=== PATIENT | female | born 1945 | race African-American/Black ===

== ENCOUNTER 2016-08-31 09:53 | Observation (INO) ==
--- NOTE | 2016-08-31 10:14 | Emergency Department Note ---
Disposition Clinical Impression: UTI (urinary tract infection) Syncope Qualifiers: Syncope type: unspecified Qualified Code(s): R55 - Syncope and collapse Disposition: Admitted As Inpatient Condition: Fair Referrals: NO,PCP [Primary Care Provider] - Forms: ED Satisfaction Letter Time of Disposition: 11:07 Syncope HPI - General Chief Complaint: ED Syncope Stated Complaint: syncopal Time Seen by Provider: 08/31/16 10:01 Source: EMS Mode of arrival: EMS Limitations: no limitations Nursing Notes Reviewed: Yes Vital Signs Reviewed: Yes - History of Present Illness HPI Narrative: Alert and oriented 71-year-old female is brought to the emergency department via EMS from an outside [facility] for evaluation after sustaining a syncopal episode. The patient states she was sitting at the breakfast table eating her breakfast this morning, when she began to experience a sudden onset of left- sided abdominal pain. Per EMS report, shortly after the patient began to complain of her abdominal pain, she had a witnessed syncopal episode. She was taken back to her room and lied down on the bed, however she still states she was experiencing left-sided abdominal pain, headache, and nausea. She is also complaining of right-sided chest pain, shortness of breath, and a cough that is productive of green sputum. She also complains of subjective fevers that began this morning. She denies any dysuria, vomiting, diarrhea. Per EMS report, the patient was described as being in a semi-post ictal state for a short duration after the syncopal episode. Upon review of the patient's records brought to us by EMS, the patient does not have a known history of seizure disorders. 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 Constitutional: Reports: as per HPI, fever, chills. Denies: weakness, weight change Eyes: Denies: eye pain, eye discharge, vision change ENT ED: Denies: ear pain, throat pain, dental pain, hearing loss, epistaxis, congestion, dysphagia Cardiovascular: Reports: as per HPI, chest pain. Denies: palpitations, dyspnea on exertion, edema, syncope Respiratory: Reports: as per HPI, cough, dyspnea, sputum production (Green). Denies: wheezes, hemoptysis, stridor Gastrointestinal: Reports: as per HPI, abdominal pain, nausea. Denies: vomiting , diarrhea, constipation, hematemesis, melena, hematochezia Genitourinary: Denies: dysuria, frequency, hematuria, discharge Musculoskeletal: Denies: back pain, neck pain, arthralgia, myalgia Integumentary: Denies: rash, abrasion, lesions Neurological: Reports: as per HPI, headache. Denies: weakness, numbness, paresthesias, confusion, abnormal gait, vertigo Psychiatric: Denies: anxiety, depression, suicidal thoughts, homicidal thoughts , auditory hallucinations, visual hallucinations Endocrine: Denies: fatigue Hematological/Lymphatic: Denies: easy bleeding, easy bruising Allergic/Immunologic: Denies: facial swelling, urticaria Past Medical History - Past Medical History Attestation: Yes The following information was validated with the patient. 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 Absent: nystagmus - Expanded Eye Exam Pupils: Bilateral: regular, round, reactive, size (1) Sclera/Conjunctival: bilateral: normal inspection - ENT ENT exam: mucous membranes moist - Neck Neck exam: Present: normal inspection, full ROM, trachea midline - Chest Chest inspection: Present: normal inspection, symmetric chest wall rise - Respiratory Respiratory exam: Present: normal lung sounds bilaterally. Absent: respiratory distress, wheezes, accessory muscle use, prolonged expiratory phase - Cardiovascular Cardiovascular exam: Present: regular rate, normal rhythm, normal heart sounds - Abdominal Exam Abdominal exam: Present: soft, tenderness, normal bowel sounds. Absent: distention, guarding, rebound, rigidity, organomegaly, trauma, mass Abdominal tenderness: Present: diffuse, moderate - Extremities Exam Extremities exam: Present: normal inspection, full ROM. Absent: tenderness, pedal edema - Neurological Exam Neurological exam: Present: alert, oriented X3 - Expanded Neurological Exam Patient oriented to: Present: person, place, time Speech: Present: fluid speech Cranial nerves: EOM function (II, III, IV, ): Normal, facial sensation (V): Normal, facial palsy (VII): Normal, spinal accessory function (XI): Normal, tongue deviation (XII): Normal Cerebellar function: finger to nose: Normal Motor strength - LUE: 5/5 Motor strength - RUE: 5/5 Motor strength - LLE: 5/5 Motor strength - RLE: 5/5 Upper motor neuron exam: pronator drift: Absent bilaterally, sensory extinction : Absent bilaterally Sensory exam upper extremity: light touch: Normal Sensory exam lower extremity: light touch: Normal Coma Scale Eye Opening: Spontaneous Coma Scale Motor Response: Obeys Commands Coma Scale Verbal Response: Oriented Coma Scale Total: 15 - Psychiatric Psychiatric exam: Present: normal affect, normal mood - Skin Skin exam: Present: warm, dry, intact, normal color Course - Reevaluation(s) Reevaluation #1: Trey hospitalist Time: 13:10 - Consultations Consultation #1: Dr Luna accepts Time: 13:14 Vital Signs Temperature 97.8 F 08/31/16 09:56 Pulse Rate 70 08/31/16 09:56 Respiratory Rate 18 08/31/16 09:56 Blood Pressure 176/81 08/31/16 09:56 O2 Sat by Pulse Oximetry 100 08/31/16 09:56 Temperature 97.8 F 08/31/16 09:56 Pulse Rate 75 08/31/16 10:30 Respiratory Rate 16 08/31/16 10:30 Blood Pressure 144/78 08/31/16 10:30 O2 Sat by Pulse Oximetry 97 08/31/16 10:30 Oxygen Delivery Oxygen Delivery Room Air Syncope - MDM Narrative Medical decision making narrative: The patient awake and alert asking to eat. No family present at this time. Patient states she has a history of coronary disease with stents however this is not on her history from the care home. She is also states she is diabetic however she is not on any diabetes medications and it is not on the problem list from care home. Patient will be admitted. Rocephin started for UTI. No fever no white count. Patient not felt to be septic. - Medical Records Medical records reviewed: Yes I reviewed the patient's medical records. - Lab Data Lab results reviewed: Yes I reviewed the patient's lab results. Result diagrams: 08/31/16 11:11 08/31/16 11:11 Lab Results 08/31/16 08/31/16 08/31/16 Range/Units 11:11 11:11 11:11 WBC 6.3 (4.3-11.1) K/mcL RBC 4.63 (3.82-4.97) M/mcL Hgb 13.0 (11.5-15.4) g/dL Hct 40.7 (35.3-44.9) % MCV 87.9 (83.0-100.0) fL MCH 28.1 (28.0-33.3) pg MCHC 31.9 (31.6-35.5) g/dL RDW 14.7 H (11.5-14.5) % Plt Count 185 (140-400) K/mcL MPV 10.5 (9.4-12.4) fL Immature Gran % 0.3 (0-4) % Seg Neutrophils % 73.1 % Lymphocytes % 14.7 % Monocytes % 10.4 % Eosinophils % 1.0 % Basophils % 0.5 % Neutrophils # 4.6 (1.6-8.9) K/mcL Lymphocytes # 0.9 (0.6-4.6) K/mcL Monocytes # 0.7 (0.0-1.3) K/mcL Eosinophils # 0.1 (0.0-0.6) K/mcL Basophils # 0.0 (0.0-0.2) K/mcL PT 11.6 (9.4-12.1) Seconds INR 1.1 APTT 27.5 (26.0-36.0) Seconds Sodium 140 (136-145) mEq/L Potassium 4.6 H (3.5-4.5) mEq/L Chloride 107 (98-109) mEq/L Carbon Dioxide 26 (19-29) mEq/L BUN 14 (7-20) mg/dL Creatinine 0.78 (0.57-1.11) mg/dL Est GFR ( Amer) > 60 (> 60) Est GFR (Non-Af Amer) > 60 (> 60) BUN/Creatinine Ratio 18 (6-26) Glucose 98 (70-99) mg/dL Calculated Osmolality 290 (280-300) Calcium 9.3 (8.6-10.8) mg/dL Total Bilirubin 0.4 (0.2-1.2) mg/dL Direct Bilirubin 0.1 (0.0-0.5) mg/dL Indirect Bilirubin 0.3 (0.0-1.2) mg/dL AST 14 (5-34) Units/L ALT 10 (0-55) Units/L Alkaline Phosphatase 60 (38-126) Units/L Troponin I (0-0.03) ng/mL Serum Total Protein 7.0 (6.0-8.3) g/dL Albumin 3.5 (3.5-5.0) g/dL Globulin 3.5 (2.4-3.5) g/dL Albumin/Globulin Ratio 1.0 L (1.1-2.2) Amylase 124 (25-125) Units/L Lipase 39 (8-78) Units/L Urine Color (Yellow) Urine Clarity (Clear) Urine pH (5.0-8.0) pH Units Ur Specific [place] (1.010-1.025) Urine Protein (Neg-Trace) mg/dL Urine Glucose (UA) (Normal) mg/dL Urine Ketones (Negative) mg/dL Urine Blood (Negative) Urine Nitrite (Negative) Urine Bilirubin (Negative) Urine Urobilinogen (Normal) mg/dL Ur Leukocyte Esterase (Negative) Urine Microscopic RBC (0-3) per hpf Urine Microscopic WBC (0-3) per hpf Ur Squamous Epith Cells (None-Few) per lpf Urine Bacteria (None-Few) per hpf Hyaline Casts (None-Few) per lpf 08/31/16 08/31/16 Range/Units 11:11 11:40 WBC (4.3-11.1) K/mcL RBC (3.82-4.97) M/mcL Hgb (11.5-15.4) g/dL Hct (35.3-44.9) % MCV (83.0-100.0) fL MCH (28.0-33.3) pg MCHC (31.6-35.5) g/dL RDW (11.5-14.5) % Plt Count (140-400) K/mcL MPV (9.4-12.4) fL Immature Gran % (0-4) % Seg Neutrophils % % Lymphocytes % % Monocytes % % Eosinophils % % Basophils % % Neutrophils # (1.6-8.9) K/mcL Lymphocytes # (0.6-4.6) K/mcL Monocytes # (0.0-1.3) K/mcL Eosinophils # (0.0-0.6) K/mcL Basophils # (0.0-0.2) K/mcL PT (9.4-12.1) Seconds INR APTT (26.0-36.0) Seconds Sodium (136-145) mEq/L Potassium (3.5-4.5) mEq/L Chloride (98-109) mEq/L Carbon Dioxide (19-29) mEq/L BUN (7-20) mg/dL Creatinine (0.57-1.11) mg/dL Est GFR ( Amer) (> 60) Est GFR (Non-Af Amer) (> 60) BUN/Creatinine Ratio (6-26) Glucose (70-99) mg/dL Calculated Osmolality (280-300) Calcium (8.6-10.8) mg/dL Total Bilirubin (0.2-1.2) mg/dL Direct Bilirubin (0.0-0.5) mg/dL Indirect Bilirubin (0.0-1.2) mg/dL AST (5-34) Units/L ALT (0-55) Units/L Alkaline Phosphatase (38-126) Units/L Troponin I 0.00 (0-0.03) ng/mL Serum Total Protein (6.0-8.3) g/dL Albumin (3.5-5.0) g/dL Globulin (2.4-3.5) g/dL Albumin/Globulin Ratio (1.1-2.2) Amylase (25-125) Units/L Lipase (8-78) Units/L Urine Color Yellow (Yellow) Urine Clarity Cloudy A (Clear) Urine pH 7.5 (5.0-8.0) pH Units Ur Specific [place] 1.015 (1.010-1.025) Urine Protein Negative (Neg-Trace) mg/dL Urine Glucose (UA) Normal (Normal) mg/dL Urine Ketones Negative (Negative) mg/dL Urine Blood Negative (Negative) Urine Nitrite Positive A (Negative) Urine Bilirubin Negative (Negative) Urine Urobilinogen Normal (Normal) mg/dL Ur Leukocyte Esterase Large H (Negative) Urine Microscopic RBC 5-15 H (0-3) per hpf Urine Microscopic WBC 50-100 H (0-3) per hpf Ur Squamous Epith Cells Moderate H (None-Few) per lpf Urine Bacteria Many H (None-Few) per hpf Hyaline Casts None Seen (None-Few) per lpf - Radiology Data Radiology results reviewed: Yes I reviewed the patient's radiology results. Chest X-Ray 08/31/16 10:02 IMPRESSION: No evidence of acute cardiopulmonary disease. D/ / Chapo Bragg MD / Chapo Bragg MD Interpreting Provider: Chapo Bragg MD Head CT 08/31/16 10:02 IMPRESSION: No acute intracranial abnormality. D/ / Chapo Ng MD / Chapo Ng MD Interpreting Provider: Chapo Ng MD Abdomen/Pelvis CT 08/31/16 11:24 IMPRESSION: No definite acute abnormality of the abdomen or pelvis. Age-indeterminate fracture L2 vertebral body favored to be remote. Please correlate to site of pain. D/ / 08/31/2016 12:54:49 Clif Sotomayor MD / aria Interpreting Provider: Clif Sotomayor MD - EKG Data EKG attestation: Yes I reviewed and interpreted this EKG. EKG results narrative: EKG reviewed by Dr. Lozano as well. EKG shows a sinus rhythm with sinus arrhythmia. No ectopy noted. No STEMI. S.B.A.R. - S.B.A.R. Situation: Demographics, MOA Background: Presenting Complaint, Relevant PMH, Meds, & Allergies Assessment: Vital Signs, Course and respsone to treatment, Exam Concerns, Patient/Family Expectation, Pertinant Lab Results, Outstanding Labs Recommendation: Barrier(s) to disposition, Recommendation based on pending studies, treatments, or consults Thor Report Given to: Dr. Chandra Mcrae Repor Time: 11:07 Attestation Statement - Attestation Attestation: I examined this patient and my medical decision-making was reviewed with the S IRON WORKER/PA/Advanced Practice Nurse/Resident Physician. I agree with the documented findings, disposition and treatment plan as described except to the extent set forth below. Patient to the emergency department after a possible syncopal episode. Per care home report the patient was sitting at the table and went unresponsive. She did not fall or hit her head. The last thing the patient remembers is waking up and vomiting some "nasty eggs". Patient states that they laid her in the bed and the squad came to get her. Son present at bedside and has no further information to add. Patient's opening is some left-sided abdominal pain at this time. Exam shows left-sided tenderness. Awake alert and mentating at baseline per son. Plan. CT head and abdomen. Basic labs. EKG is unremarkable. Likely admit.
[2016-08-31 11:26] LABS: Basophils % 0.5 %; Eosinophils # 0.1 K/mcL (0.0-0.6); Hematocrit 40.7 % (35.3-44.9); Immature Granulocytes % 0.3 % (0-4); Lymphocytes # 0.9 K/mcL (0.6-4.6); Lymphocytes % 14.7 %; Mean Corpuscular HGB Conc 31.9 g/dL (31.6-35.5); Mean Corpuscular Hemoglobin 28.1 pg (28.0-33.3); Mean Corpuscular Volume 87.9 fL (83.0-100.0); Mean Platelet Volume 10.5 fL (9.4-12.4); Monocytes # 0.7 K/mcL (0.0-1.3); Monocytes % 10.4 %; Neutrophils # 4.6 K/mcL (1.6-8.9); Platelet Count 185 K/mcL (140-400); Red Blood Count 4.63 M/mcL (3.82-4.97); Red Cell Distribution Width 14.7 % (11.5-14.5); Segmented Neutrophils % 73.1 %
[2016-08-31 11:35] LABS: INR 1.1; Prothrombin Time 11.6 Seconds (9.4-12.1)
[2016-08-31 11:38] LABS: Activated Partial Thrombo Time 27.5 Seconds (26.0-36.0)
[2016-08-31 11:42] LABS: BUN/Creatinine Ratio 18 (6-26); Bilirubin,Direct 0.1 mg/dL (0.0-0.5); Bilirubin,Indirect 0.3 mg/dL (0.0-1.2); Bilirubin,Total 0.4 mg/dL (0.2-1.2); Blood Urea Nitrogen 14 mg/dL (7-20); Calcium 9.3 mg/dL (8.6-10.8); Carbon Dioxide 26 mEq/L (19-29); Chloride 107 mEq/L (98-109); Glucose 98 mg/dL (70-99); Osmolality,Calculated 290 (280-300); Potassium 4.6 mEq/L (3.5-4.5); Sodium 140 mEq/L (136-145); eGFR For African Americans > 60 (> 60); eGFR For Non-African Americans > 60 (> 60)
[2016-08-31 11:43] LABS: Alanine Aminotransferase 10 Units/L (0-55); Albumin 3.5 g/dL (3.5-5.0); Alkaline Phosphatase 60 Units/L (38-126); Amylase 124 Units/L (25-125); Aspartate Amino Transferase 14 Units/L (5-34); Globulin 3.5 g/dL (2.4-3.5); Lipase 39 Units/L (8-78)
[2016-08-31 12:29] LABS: Bilirubin,Urine Negative (Negative); Blood,Urine Negative (Negative); Clarity,Urine Cloudy (Clear); Color,Urine Yellow (Yellow); Glucose,Urine (UA) Normal (Normal); Ketones,Urine Negative (Negative); Leukocyte Esterase,Urine Large (Negative); Nitrite,Urine Positive (Negative); PH,Urine 7.5 pH Units (5.0-8.0); Protein,Urine Negative (Neg-Trace); Specific Gravity,Urine 1.015 (1.010-1.025); Urobilinogen,Urine Normal (Normal)
[2016-08-31 12:32] LABS: Bacteria,Urine Many per hpf (None-Few); Hyaline Casts,Urine None Seen per lpf (None-Few); Squamous Epithelial Cell,Urine Moderate per lpf (None-Few); WBC,Urine 50-100 per hpf (0-3)
[2016-08-31] MEDS ORDERED: Naloxone 0.4 MG/ML INJ IVP PRN (15:06)
[2016-08-31] MEDS ORDERED: Ondansetron 4 MG/2 ML VIAL IVP PRN (15:06)
[2016-08-31] MEDS ORDERED: Lidocaine 4% CREAM (LMX) 5 GM TP PRN (15:11)
--- NOTE | 2016-08-31 15:23 | Internal Med History&Physical ---
Date of Encounter: 08/31/16 Time of Encounter: 15:18 Assessment and Plan (1) Syncope Current visit: Yes Status: Acute Likely vasovagal in the setting of vomiting, compounded by underlying UTI. Patient with no neuro deficits, CT head without acute abnormalities. - Monitor on telemetry - Check carotid dopplers - TTE - Treat UTI Qualifiers: Syncope type: unspecified Qualified Code(s): R55 - Syncope and collapse (2) UTI (urinary tract infection) Current visit: Yes Status: Acute Symptomatic, UA with nitrite, TNTC WBCs - Ceftriaxone started in ER, will continue - Urine culture pending Qualifiers: Urinary tract infection type: acute cystitis Hematuria presence: without hematuria Qualified Code(s): N30.00 - Acute cystitis without hematuria (3) Dementia Current visit: Yes Status: Acute Continue home medications Qualifiers: Dementia type: unspecified type Dementia behavioral disturbance: without behavioral disturbance Qualified Code(s): F03.90 - Unspecified dementia without behavioral disturbance (4) Depression Current visit: Yes Status: Acute Continue home medications Qualifiers: Depression Type: unspecified Qualified Code(s): F32.9 - Major depressive disorder, single episode, unspecified (5) CAD (coronary artery disease) Current visit: Yes Status: Acute Per patient report has stents placed last year, attempting to obtain records from [facility] in [place]. EKG without ischemic changes and patient denies any chest pain - Obtain records - Monitor on telemetry Qualifiers: Coronary Disease-Associated Artery/Lesion type: [place] artery [place] vs. transplanted heart: [place] heart Associated angina: without angina Qualified Code(s): I25.10 - Atherosclerotic heart disease of [place] coronary artery without angina pectoris Internal Medicine - H&P: HPI Chief complaint: Syncope, vomiting, abdominal pain Admitted From: Emergency Dept Plans for Post Hospital Care: Home History of present illness: Ms. Graham is a 71 year old female with history of dementia, CAD s/p stents one year ago, TIA, and colon cancer who presented to the ER this morning from her ECF after she had a syncopal episode while eating breakfast. She states that she ate eggs that tasted terrible and then vomited and lost consciousness. Her BP was reportedly low when checked by ECF staff (80s/70s). The patient says that five people were sick from the eggs this morning. She did not fall to the ground and did not hit her head. She is unsure how long she was unconscious. By the time EMS arrived she was awake and alert, BP was 140s/70s. She has left sided abdominal pain which is new today. She also complains of dysuria which is new today. She has not had cough or shortness of breath, denies chest pain. She has not had diarrhea. She states that she is very hungry and would like to eat. In the ER she was found to have evidence of UTI and was given dose of ceftriaxone. The patient recently moved to the [facility] from [place], [place] to be closer to family. She has previously received her care through [facility] in [place], [place]. Past Med Surg Social Fam HX - Past Medical History Medical history: coronary artery disease, dementia, hyperlipidemia, osteoporosis , renal disease, TIA Psychiatric history: depression - Past Surgical History Surgical History: colectomy (secondary to colon cancer) - Social History Smoking Status: Never smoker Smokeless Tobacco Status: No Alcohol use: none Drug use: none - Additional Family History Additional family history: Patient unsure of family history Internal Medicine - H&P: Meds Acetaminophen [Tylenol] 1,000 mg PO BID 08/31/16 [History] Aspirin [Lo-Dose Aspirin EC] 81 mg PO DAILY 08/31/16 [History] Calcium Carbonate [Calcium] 600 mg PO DAILY 08/31/16 [History] Carvedilol [Coreg] 12.5 mg PO BID 08/31/16 [History] Dextromethorphan HBr/Quinidine [Nuedexta 20-10 mg Capsule] 1 cap PO BID [History] Divalproex (24 HR) [Depakote ER (24 HR)] 250 mg PO BID 08/31/16 [History] Docusate [Colace] 100 mg PO BID 08/31/16 [History] Donepezil [Aricept] 10 mg PO DAILY 08/31/16 [History] Folic Acid 1 mg PO DAILY 08/31/16 [History] Lidocaine 4% CRM (LMX) [Lmx 4] 1 appl TP Q4H PRN 08/31/16 [History] Lisinopril [Zestril] 5 mg PO DAILY 08/31/16 [History] Melatonin/Pyridoxine HCl (B6) [Melatonin 3 mg Tablet] 6 mg PO HS 08/31/16 [ History] Ondansetron HCl [Zofran] 4 mg PO Q4H PRN 08/31/16 [History] Polyethylene Glycol 3350 [MiraLAX bowel prep] 17 gm PO DAILY PRN 08/31/16 [ History] RisperiDONE [Risperdal] 0.5 mg PO BID 08/31/16 [History] Sertraline [Zoloft] 50 mg PO DAILY 08/31/16 [History] Simvastatin [Zocor] 40 mg PO DAILY 08/31/16 [History] Allergies No Known Allergies Allergy (Verified 08/31/16 09:55) All Systems PM: A 10-system review of systems was performed and is negative for pertinent findings except as documented above in the HPI. - Constitutional Vitals: Temp Pulse Resp BP Pulse Ox 0 F L 74 0 0/0 97 08/31/16 13:53 08/31/16 13:24 08/31/16 13:53 08/31/16 13:53 08/31/16 13:24 General appearance: Present: A&O X 3 Exam: Patient in no acute distress, sitting comfortably in bed eating lunch - Head Head exam: Present: atraumatic - Eye Eye exam: Present: EOMI, sclera anicteric - ENT ENT exam: Present: mucous membranes moist - Neck Neck exam general surgery: Present: supple - Respiratory Respiratory exam: Present: CTAB - Cardiovascular Cardiovascular exam: Present: RRR. Absent: diastolic murmur, gallop, rubs, systolic murmur - GI/Abdominal GI/Abdominal exam: Present: normal bowel sounds, soft, tenderness (Tender left lower quadrant without rebound or guarding. Bowel sounds normal. ). Absent: distended - Extremities Exam Extremities exam: Absent: pedal edema - Neurological Exam Neurological exam: Present: no focal deficits - Skin Skin exam: Absent: rash Internal Med - H&P Results - Labs CBC & Chem 7: 08/31/16 11:11 08/31/16 11:11
--- NOTE | 2016-08-31 16:39 | Electrocardiograph Report ---
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
[2016-08-31] MEDS: 0.9 % Sodium Chloride 1,000 ML IVC SCH (17:25)
[2016-08-31] MEDS: Divalproex (24 HR) 250 MG TABLET PO SCH (20:11)
[2016-08-31] MEDS: Melatonin 3 MG TABLET PO SCH (20:12)
[2016-08-31] MEDS: risperiDONE 1 MG TABLET PO SCH (20:12)
[2016-08-31] MEDS ORDERED: GI Cocktail 40 ML EACH PO STA (21:17)
[2016-08-31] MEDS ORDERED: Benzonatate 100 MG CAPSULE PO PRN (21:17)
[2016-08-31] MEDS ORDERED: Ipratropium/Albuterol Neb 3 ML IH PRN (21:17)
[2016-08-31] MEDS ORDERED: Mag Hydrox/Al Hydrox/Simeth 30 ML UDC PO PRN (21:17)
[2016-08-31] MEDS ORDERED: Famotidine 20 MG TABLET PO SCH (21:30)
[2016-09-01 00:13] LABS: Adenovirus Not Detected (Not Detect); Bordetella Pertussis Not Detected (Not Detect); Chlamydophila pneumoniae Not Detected (Not Detect); Coronavirus 229E Not Detected (Not Detect); Coronavirus HKU1 Not Detected (Not Detect); Coronavirus NL63 Not Detected (Not Detect); Coronavirus OC43 Not Detected (Not Detect); Human Metapneumovirus ***DETECTED*** (Not Detect); Human Rhinovirus/Enterovirus Not Detected (Not Detect); Influenza A Subtype 2009 H1 Not Detected (Not Detect); Influenza A Untypeable Not Detected (Not Detect); Influenza B Not Detected (Not Detect); Mycoplasma pneumoniae Not Detected (Not Detect); Parainfluenza Virus 1 Not Detected (Not Detect); Parainfluenza Virus 2 Not Detected (Not Detect); Parainfluenza Virus 3 Not Detected (Not Detect); Parainfluenza Virus 4 Not Detected (Not Detect); Respiratory Syncytial Virus Not Detected (Not Detect)
[2016-09-01 05:02] LABS: Basophils % 0.6 %; Eosinophils # 0.1 K/mcL (0.0-0.6); Eosinophils % 1.7 %; Immature Granulocytes % 0.4 % (0-4); Lymphocytes # 1.1 K/mcL (0.6-4.6); Lymphocytes % 21.1 %; Mean Corpuscular HGB Conc 32.4 g/dL (31.6-35.5); Mean Corpuscular Hemoglobin 28.6 pg (28.0-33.3); Mean Corpuscular Volume 88.3 fL (83.0-100.0); Mean Platelet Volume 11.2 fL (9.4-12.4); Monocytes # 0.6 K/mcL (0.0-1.3); Neutrophils # 3.4 K/mcL (1.6-8.9); Platelet Count 176 K/mcL (140-400); Red Blood Count 4.19 M/mcL (3.82-4.97); Red Cell Distribution Width 14.8 % (11.5-14.5); Segmented Neutrophils % 65.2 %
[2016-09-01 05:25] LABS: BUN/Creatinine Ratio 23 (6-26); Blood Urea Nitrogen 20 mg/dL (7-20); Calcium 8.1 mg/dL (8.6-10.8); Carbon Dioxide 24 mEq/L (19-29); Chloride 109 mEq/L (98-109); Glucose 110 mg/dL (70-99); Osmolality,Calculated 295 (280-300); Potassium 4.1 mEq/L (3.5-4.5); Sodium 141 mEq/L (136-145); eGFR For African Americans > 60 (> 60); eGFR For Non-African Americans > 60 (> 60)
[2016-09-01] MEDS: 0.9 % Sodium Chloride 1,000 ML IVC SCH ×2 (07:05→21:24)
--- NOTE | 2016-09-01 09:44 | Internal Med Progress Note ---
Date of Encounter: 09/01/16 Time of Encounter: 09:00 - Assessment and plan (1) Syncope Current Visit: Yes Status: Acute Assessment and plan: Pt had [facility] episode at [facility] yesterday after having an episode of vomiting and sudden onset L abd pain. Pt also has had recent URI symptoms and underlying UTI. Head CT was negative for actue intracranial abnormality, but did show chronic microvasuclar ischemia. Pt reports BRIDGES, but states that it is "ok" today. She denies chest pain and SOB today. VS have been stable and she has no electrolyte imbalance or leukocytosis. EKG in ED showed sinus rhythm with sinus arrhythmia, rate 73, CA int 159, QRS 92, and QTc 413. Telemetry Fall precautions Will continue to monitor labs and vital signs. Qualifiers: Syncope type: unspecified Qualified Code(s): R55 - Syncope and collapse (2) UTI (urinary tract infection) Current Visit: Yes Status: Acute Assessment and plan: Urine collected in ED. Cloudy, + for nitrites, Lg amt Leukocyte esterase, WBC 50 -100, RBC 5-15, many bacteria. Culture ordered this a.m and pending. Pt denies urinary symptoms, n/v, flank pain. Rocephin 1g IV q 24 h Monitor labs Monitor VS Urine culture pending. Qualifiers: Urinary tract infection type: acute cystitis Hematuria presence: without hematuria Qualified Code(s): N30.00 - Acute cystitis without hematuria (3) Infection due to human metapneumovirus (hMPV) Current Visit: Yes Status: Acute Assessment and plan: Pt reports cold/URI symptoms for 1 week. Productive cough with green sputum, subjective fevers, rhinorrhea. Wheezing heard in anterior upper lung vora, as well as posterior. Ronchi that clear with cough heard in post bases. Chest xray shows no acute cardiopulmonary processes. Symptomatic treatment Monitor labs and VS Contact and droplet precautions (4) Ankle pain, right Current Visit: Yes Status: Acute Assessment and plan: During exam this a.m., pt's R ankle found to be painful light palpation. No obvious sign of injury or swelling. Painful over medial malleolus. Pt states that she fell at [facility]CF yesterday and this might be the cause. Xray ordered Qualifiers: Chronicity: acute Qualified Code(s): M25.571 - Pain in right ankle and joints of right foot (5) Dementia Current Visit: Yes Status: Chronic Assessment and plan: Chronic. Fall precautions Bed alarm Continue home medications Qualifiers: Dementia type: unspecified type Dementia behavioral disturbance: without behavioral disturbance Qualified Code(s): F03.90 - Unspecified dementia without behavioral disturbance (6) CAD (coronary artery disease) Current Visit: Yes Status: Acute Assessment and plan: Chronic. EKG sinus rhythm with sinus arrhythmia, no ischemic changes noted. She denies chest pain or SOB this a.m. S1 S2 heard, no murmurs. 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 transplanted heart: [place] heart Associated angina: without angina Qualified Code(s): I25.10 - Atherosclerotic heart disease of [place] coronary artery without angina pectoris (7) Depression Current Visit: Yes Status: Acute Assessment and plan: Chronic. Continue home medications. Qualifiers: Depression Type: unspecified Qualified Code(s): F32.9 - Major depressive disorder, single episode, unspecified - Time Spent With Patient less than 15 minutes - Subjective Interval history: Pt reports cold symptoms and cough x 1 week. States that she is having a cough with green sputum. Pt also reports continued L abd pain and "lump" in her abd. Pt is guarding and indicates that it is tender to palpation. Per pt she had 2 BM yesterday, no diarrhea. She denies chest pain or SOB today and states that BRIDGES is "ok". Pt is eating regular breakfast tray during exam and does not appear to have pain and denies nausea. - Constitutional Vitals: Temp Pulse Resp BP Pulse Ox 98.3 F 77 16 151/68 96 09/01/16 08:03 09/01/16 08:03 09/01/16 08:03 09/01/16 08:03 09/01/16 08:03 General appearance: Present: cooperative, A&O X 3, pleasant, answers questions appropriately - Head Head exam: Present: normal inspection - Eye Eye exam: Present: normal appearance - ENT ENT exam: Present: mucous membranes moist, normal exam - Neck Neck exam general surgery: Present: normal inspection. Absent: lymphadenopathy , tenderness - Respiratory Respiratory exam: Present: CTAB, rhonchi, wheezes. Absent: chest wall tenderness Additional comments: Wheezing heard anteriorly and posteriorly in christine apices. Ronchi heard in christine bases, clears with cough. - Cardiovascular Cardiovascular exam: Present: RRR, +S1, +S2. Absent: diastolic murmur, systolic murmur - Expanded Cardiovascular Exam Peripheral pulses: 1+: Dorsalis Pedis (L) PM, Dorsalis Pedis (R) PM - GI/Abdominal GI/Abdominal exam: Present: distended, guarding, normal bowel sounds, tenderness. Absent: hepatomegaly - Extremities Exam Extremities exam: Present: normal capillary refill, normal inspection, tenderness, warm, radial pulses palpable and symetrical. Absent: calf tenderness, cyanotic, full ROM, joint swelling, pedal edema Additional comments: Pt reports pain with palpation to R medial malleolus area, possibly from fall yesterday. - Back Exam Back exam: Present: normal inspection. Absent: tenderness - Neurological Exam Neurological exam: Present: alert, oriented X3, strengths equal and symetr throughout Internal Medicine: Result - Labs CBC & Chem 7: 09/01/16 03:53 09/01/16 03:53 Labs: Short CBC 09/01/16 Range/Units 03:53 WBC 5.2 (4.3-11.1) K/mcL Hgb 12.0 (11.5-15.4) g/dL Hct 37.0 (35.3-44.9) % Plt Count 176 (140-400) K/mcL Neutrophils # 3.4 (1.6-8.9) K/mcL BMP 09/01/16 03:53 Sodium 141 Potassium 4.1 Chloride 109 Carbon Dioxide 24 BUN 20 Creatinine 0.86 Glucose 110 H Calcium 8.1 L Cardiac Enzymes 08/31/16 08/31/16 09/01/16 Range/Units 16:26 22:10 03:53 Troponin I 0.00 0.00 0.01 (0-0.03) ng/mL - ABG Interpretation ABG results: PT/INR, D-dimer PT 11.6 Seconds (9.4-12.1) 08/31/16 11:11 Consult Discharge Plan - Plan Referrals: NO,PCP [Primary Care Provider] -
[2016-09-01] MEDS: Folic Acid 1 MG TABLET PO SCH (10:27)
[2016-09-01] MEDS: Aspirin Enteric Coated 81 MG Tablet PO SCH (10:27)
[2016-09-01] MEDS: Famotidine 20 MG TABLET PO SCH (10:27)
[2016-09-01] MEDS: risperiDONE 1 MG TABLET PO SCH ×2 (10:28→20:51)
[2016-09-01] MEDS: Divalproex (24 HR) 250 MG TABLET PO SCH ×2 (10:28→20:50)
--- NOTE | 2016-09-01 11:02 | ECHO - Doppler Report ---
Echocardiogram Name: Marianne Graham Date of Study: 08/31/2016 Date: 1945 Ht: 65.0 in Medical Record#: [id number] Age: 71 Wt: 165.0 lb Gender: Female BSA: 1.82 Order #: [id number] Location: [facility] Room #: 3B14 Reading Physician: Jodi Herzog DO Bacteriologist [place]: MARIANNE DaleT Ordering Physician: Anita Mccollum MD Primary Physician: None Indications: Syncope Impressions: LVEF 65%. Normal left ventricular size and systolic function. Mild concentric hypertrophy of the left ventricle. There is evidence of mild diastolic dysfunction of the left ventricle. Normal right ventricular size and function. Mild tricuspid regurgitation. Mild pulmonic regurgitation. No pulmonary hypertension. Small pericardial effusion without tamponade. Left Ventricular Wall Motion: Rest Echo Findings All wall segments showed normal motion. Findings: Study Quality * Technically adequate exam. ECG Findings * Normal sinus rhythm. Left Ventricle * Mild concentric left ventricular hypertrophy. * Mild left ventricular diastolic dysfunction. * LVEF 65%. Aortic Valve * No aortic regurgitation. * Trileaflet aortic valve. * Mildly calcified aortic valve leaflets. * No aortic stenosis. Mitral Valve * No mitral regurgitation. * Normal mitral valve structure. * No mitral stenosis. Tricuspid Valve * Normal tricuspid valve structure. * Mild tricuspid regurgitation. * Estimated RA pressure is 3 mmHg. * Estimated RVSP is 25 mmHg. * No pulmonary hypertension. Pulmonic Valve * Pulmonic valve is not well visualized. * No pulmonic stenosis. * Mild pulmonic regurgitation. Pulmonary Artery * Pulmonary artery not well visualized. Pericardium * There is a small pericardial effusion present. Right Ventricle * Normal right ventricular structure and function. Left Atrium * Mildly dilated left atrium. Right Atrium * Normal right atrial size. Interatrial Septum * No evidence of PFO by color Doppler. IVC * Normal IVC dimensions and inspiratory collapse. Aorta * Normally sized aortic root. History Hypercholesteremia Measurements: BP: 162/ 78 2D Normal Values RVIDd: 3.10 cm <2.7 cm IVSd: 1.30 cm 0.6 - 1.0 cm LVIDd: 4.00 cm 3.7 - 5.6 cm LVPWd: 1.30 cm 0.6 - 1.1 cm LVIDs: 2.20 cm 1.5 - 3.6 cm AO: 2.00 cm < 4.0 cm LA: 2.50 cm 2.0 - 4.0cm %FS: 45.00 cm >25 % LA volume: 63 Mitral Valve Peak E:.73 m/sec Peak A:.85 m/sec E/A Ratio:0.9 Peak E' Lat Alo:4.19 cm/s Peak E' Med Alo:4.58 cm/s E/E' Lat Ratio:17.3 E/E' Med Ratio:15.9 Tricuspid Valve TV Regurg Peak Grad: 22.00mmHg TV Regurg Peak Alo: 2.35m/sec Updated by Jodi Herzog on 09/01/2016 10:58:06 AM electronically signed on 09/01/2016 10:59:22 AM with status of Final Wall Motion [place]: 1=Normal, 2=Hypokinesis, 3=Akinesis, 4=Dyskinesis, 5=Aneurysmal, 6=Hyperkinetic, X=Not Visualized (Blank)=Missing
[2016-09-01] MEDS: Melatonin 3 MG TABLET PO SCH (20:51)
[2016-09-01] MEDS: Acetaminophen 325 MG TABLET PO PRN (21:23)
[2016-09-02 04:28] LABS: Basophils % 0.8 %; Eosinophils # 0.2 K/mcL (0.0-0.6); Eosinophils % 3.7 %; Hematocrit 39.6 % (35.3-44.9); Hemoglobin 12.4 g/dL (11.5-15.4); Immature Granulocytes % 0.2 % (0-4); Lymphocytes # 1.2 K/mcL (0.6-4.6); Lymphocytes % 22.7 %; Mean Corpuscular HGB Conc 31.3 g/dL (31.6-35.5); Mean Corpuscular Hemoglobin 27.7 pg (28.0-33.3); Mean Corpuscular Volume 88.4 fL (83.0-100.0); Monocytes # 0.8 K/mcL (0.0-1.3); Monocytes % 14.8 %; Neutrophils # 2.9 K/mcL (1.6-8.9); Platelet Count 172 K/mcL (140-400); Red Blood Count 4.48 M/mcL (3.82-4.97); Red Cell Distribution Width 14.7 % (11.5-14.5); Segmented Neutrophils % 57.8 %
[2016-09-02 04:42] LABS: BUN/Creatinine Ratio 19 (6-26); Blood Urea Nitrogen 15 mg/dL (7-20); Calcium 8.3 mg/dL (8.6-10.8); Carbon Dioxide 25 mEq/L (19-29); Chloride 107 mEq/L (98-109); Glucose 86 mg/dL (70-99); Osmolality,Calculated 290 (280-300); Sodium 140 mEq/L (136-145); eGFR For African Americans > 60 (> 60); eGFR For Non-African Americans > 60 (> 60)
[2016-09-02] MEDS: Acetaminophen 325 MG TABLET PO PRN ×2 (05:32→12:39)
[2016-09-02] MEDS: Aspirin Enteric Coated 81 MG Tablet PO SCH (09:14)
[2016-09-02] MEDS: Famotidine 20 MG TABLET PO SCH (09:14)
[2016-09-02] MEDS: Folic Acid 1 MG TABLET PO SCH (09:14)
[2016-09-02] MEDS: risperiDONE 1 MG TABLET PO SCH ×2 (09:14→22:24)
[2016-09-02] MEDS: Divalproex (24 HR) 250 MG TABLET PO SCH ×2 (09:15→22:24)
[2016-09-02] MEDS: 0.9 % Sodium Chloride 1,000 ML IVC SCH (12:11)
--- NOTE | 2016-09-02 12:42 | Internal Med Progress Note ---
Date of Encounter: 09/02/16 Time of Encounter: 09:30 - Assessment and plan (1) UTI (urinary tract infection) Current Visit: Yes Status: Acute Assessment and plan: Preliminary urine culture shows gram negative rods. Sensitivity pending. Pt denies urinary s/s. No CVA tenderness. Pt is incontinent and wears adult incontinence brief. No leukocytosis or fever. Rocephin 1g IV q 24 h Monitor labs Monitor VS Urine sensitivity pending. Qualifiers: Urinary tract infection type: acute cystitis Hematuria presence: without hematuria Qualified Code(s): N30.00 - Acute cystitis without hematuria (2) Syncope Current Visit: Yes Status: Acute Assessment and plan: Telemetry Fall precautions Will continue to monitor labs and vital signs. Qualifiers: Syncope type: unspecified Qualified Code(s): R55 - Syncope and collapse (3) Infection due to human metapneumovirus (hMPV) Current Visit: Yes Status: Acute Assessment and plan: Pt states that she is feeling better today, states that cough is some better, but is still producing sputum. Pt remains in isolation. Lungs clear in christine apices, exp wheezing in post bases, clear in ant upper airway. Symptomatic treatment Monitor labs and VS Contact and droplet precautions (4) Ankle pain, right Current Visit: Yes Status: Acute Assessment and plan: Ankle remains tender to palpation. Xray negative for fracture or dislocation. Qualifiers: Chronicity: acute Qualified Code(s): M25.571 - Pain in right ankle and joints of right foot (5) Dementia Current Visit: Yes Status: Chronic Assessment and plan: Chronic. Fall precautions Bed alarm Continue home medications Qualifiers: Dementia type: unspecified type Dementia behavioral disturbance: without behavioral disturbance Qualified Code(s): F03.90 - Unspecified dementia without behavioral disturbance (6) CAD (coronary artery disease) Current Visit: Yes Status: Acute Assessment and plan: Chronic. EKG sinus rhythm with sinus arrhythmia, no ischemic changes noted. She denies chest pain or SOB this a.m. S1 S2 heard, no murmurs. 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 transplanted heart: [place] heart Associated angina: without angina Qualified Code(s): I25.10 - Atherosclerotic heart disease of [place] coronary artery without angina pectoris (7) Depression Current Visit: Yes Status: Acute Qualifiers: Depression Type: unspecified Qualified Code(s): F32.9 - Major depressive disorder, single episode, unspecified - Time Spent With Patient less than 15 minutes - Subjective Interval history: Pt states that she feels better today and actually states that she would like to go home. She still reports productive cough, however, states that it is better. She denies BRIDGES, n/v. Pt is in precautions for c-diff currently due to possible c-diff per subjective assessment of staff. She denies diarrhea today. Abd sl distended and tender to palpation, she insists again today that that is where she fell when she was at the F. CT ordered. - Constitutional Vitals: Temp Pulse Resp BP Pulse Ox 98.3 F 78 16 182/68 97 09/02/16 08:47 09/02/16 08:47 09/02/16 08:47 09/02/16 08:47 09/02/16 08:47 General appearance: Present: cooperative, A&O X 3, pleasant, answers questions appropriately - Head Head exam: Present: normal inspection - Eye Eye exam: Present: normal appearance, conjuntiva pink - ENT ENT exam: Present: mucous membranes moist, normal exam - Neck Neck exam general surgery: Absent: normal inspection, tenderness - Respiratory Respiratory exam: Present: decreased breath sounds, wheezes. Absent: respiratory distress Additional comments: Lungs clear, diminshed with wheezes heard post in christine bases. - Cardiovascular Cardiovascular exam: Present: RRR, +S1, +S2. Absent: diastolic murmur, systolic murmur - GI/Abdominal GI/Abdominal exam: Present: distended, normal bowel sounds, tenderness - Extremities Exam Extremities exam: Present: normal capillary refill, normal inspection, tenderness, warm, radial pulses palpable and symetrical Additional comments: R ankle tender medially. No bruising, swelling, redness, abrasions. - Neurological Exam Neurological exam: Present: alert, oriented X3, no focal deficits Internal Medicine: Result - Labs CBC & Chem 7: 09/02/16 03:23 09/02/16 03:23 Labs: Short CBC 09/02/16 Range/Units 03:23 WBC 5.1 (4.3-11.1) K/mcL Hgb 12.4 (11.5-15.4) g/dL Hct 39.6 (35.3-44.9) % Plt Count 172 (140-400) K/mcL Neutrophils # 2.9 (1.6-8.9) K/mcL BMP 09/02/16 03:23 Sodium 140 Potassium 4.0 Chloride 107 Carbon Dioxide 25 BUN 15 Creatinine 0.80 Glucose 86 Calcium 8.3 L - ABG Interpretation ABG results: PT/INR, D-dimer PT 11.6 Seconds (9.4-12.1) 08/31/16 11:11 - Impressions Impressions Ankle X-Ray 09/01/16 09:00 IMPRESSION: No acute osseous abnormality. D/ / 09/01/2016 15:06:17 Ismael Aleman MD / [email or web address] Interpreting Provider: Ismael Aleman MD Consult Discharge Plan - Plan Referrals: NO,PCP [Primary Care Provider] -
--- NOTE | 2016-09-02 12:53 | Electrocardiograph Report ---
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
--- NOTE | 2016-09-02 16:27 | Carotid Imaging Report ---
Carotid Duplex Patient Name:Marianne Graham Order Number:[id number] Procedure Date:08/31/2016 Date:1945ge:71 yrs Gender:Female Rt.BP:162 / 78 mmHgHeart Rate: Location:[facility] Room #: 3B14 Tilt Tray Driver:Lisseth Hinton RVT Referring MD:Anita Mccollum MD emergency management system director:None Reading MD:Rigo Mims MD Risk Factors Yes/No Hypercholesterolemia Yes Impressions: Findings: Right proximal ICA has a moderate, 40-59% stenosis. Recommendations: Risk Factor Modification, Medical Therapy, and Follow up exam 12 months. Findings Carotid Duplex: Right: There is nonstenotic plaque in the right proximal common carotid artery. There is smooth heterogeneous plaque. There is nonstenotic plaque in the right mid common carotid artery. There is smooth heterogeneous plaque. There is nonstenotic plaque in the right distal common carotid artery. There is smooth heterogeneous plaque. There is nonstenotic plaque in the right bifurcation. There is smooth heterogeneous plaque. There is 40-59% stenosis in the right proximal internal carotid artery. There is smooth heterogeneous plaque. There is nonstenotic plaque in the right eca. There is smooth heterogeneous plaque. Left: There is nonstenotic plaque in the left mid common carotid artery. There is smooth heterogeneous plaque. There is nonstenotic plaque in the left distal common carotid artery. There is smooth heterogeneous plaque. There is nonstenotic plaque in the left bifurcation. There is smooth heterogeneous plaque. There is nonstenotic plaque in the left proximal internal carotid artery. There is smooth heterogeneous plaque. There is nonstenotic plaque in the left eca. There is smooth heterogeneous plaque. Prior Study: No prior study available for comparison. Carotid Results Right PSV EDV Assessment Proximal CCA 131 10 Non Stenotic Plaque Mid CCA 174 12 Non Stenotic Plaque Distal CCA 231 10 Non Stenotic Plaque Bifurcation 84 12 Non Stenotic Plaque Proximal ICA 149 6 40-59% stenosis Mid ICA 108 17 Normal Distal ICA 62 12 Normal ECA 174 17 Non Stenotic Plaque Vertebral Artery 101 14 Antegrade Flow Left PSV EDV Assessment Proximal CCA 110 10 Normal Mid CCA 126 8 Non Stenotic Plaque Distal CCA 121 9 Non Stenotic Plaque Bifurcation 95 13 Non Stenotic Plaque Proximal ICA 104 11 Non Stenotic Plaque Mid ICA 82 14 Normal Distal ICA 71 17 Normal ECA 132 22 Non Stenotic Plaque Vertebral Artery 52 9 Antegrade Flow Ratio's Right ICA/CCA Ratio: 0.85 ICA/CCA Values: 149/174 Left ICA/CCA Ratio: 0.82 ICA/CCA Values: 104/126 Updated by Rigo Mims MD on 09/02/2016 4:22:30 PM electronically signed on 09/02/2016 4:22:44 PM with status of Final
[2016-09-02] MEDS: Melatonin 3 MG TABLET PO SCH (22:24)
[2016-09-03 04:36] LABS: Basophils % 0.6 %; Eosinophils # 0.2 K/mcL (0.0-0.6); Hematocrit 37.6 % (35.3-44.9); Hemoglobin 12.5 g/dL (11.5-15.4); Immature Granulocytes % 0.2 % (0-4); Lymphocytes # 1.2 K/mcL (0.6-4.6); Mean Corpuscular HGB Conc 33.2 g/dL (31.6-35.5); Mean Corpuscular Hemoglobin 29.1 pg (28.0-33.3); Mean Corpuscular Volume 87.4 fL (83.0-100.0); Mean Platelet Volume 11.1 fL (9.4-12.4); Monocytes # 0.5 K/mcL (0.0-1.3); Monocytes % 10.6 %; Neutrophils # 2.9 K/mcL (1.6-8.9); Platelet Count 164 K/mcL (140-400); Red Cell Distribution Width 14.7 % (11.5-14.5); Segmented Neutrophils % 60.6 %
[2016-09-03 04:53] LABS: BUN/Creatinine Ratio 17 (6-26); Blood Urea Nitrogen 13 mg/dL (7-20); Calcium 8.3 mg/dL (8.6-10.8); Carbon Dioxide 20 mEq/L (19-29); Chloride 106 mEq/L (98-109); Glucose 102 mg/dL (70-99); Osmolality,Calculated 284 (280-300); Potassium 4.1 mEq/L (3.5-4.5); Sodium 137 mEq/L (136-145); eGFR For African Americans > 60 (> 60); eGFR For Non-African Americans > 60 (> 60)
--- NOTE | 2016-09-03 09:27 | Physician Discharge Referral ---
ExtendedCare Referral Info Transfer To: [facility] Provider in Charge: Tyson Geronimo Provider in Charge after Transfer: PCP Institutional Level of Care: Skilled - Diagnosis (1) Ankle pain, right Priority: Secondary Status: Acute (2) CAD (coronary artery disease) Priority: Secondary Status: Chronic (3) Depression Priority: Secondary Status: Chronic (4) Infection due to human metapneumovirus (hMPV) Priority: Primary Status: Acute (5) Syncope Priority: Primary Status: Resolved (6) UTI (urinary tract infection) Priority: Primary Status: Acute (7) Dementia Priority: Secondary Status: Chronic Prognosis: Fair Aware of Diagnosis: Patient Aware of Prognosis: Patient - Transfer Medications Prescriptions: Cefdinir [Omnicef] 300 mg PO BID #10 capsule Home Medications: Acetaminophen [Tylenol] 1,000 mg PO BID 08/31/16 [History] Aspirin [Lo-Dose Aspirin EC] 81 mg PO DAILY 08/31/16 [History] Calcium Carbonate [Calcium] 600 mg PO DAILY 08/31/16 [History] Carvedilol [Coreg] 12.5 mg PO BID 08/31/16 [History] Dextromethorphan HBr/Quinidine [Nuedexta 20-10 mg Capsule] 1 cap PO BID [History] Divalproex (24 HR) [Depakote ER (24 HR)] 250 mg PO BID 08/31/16 [History] Docusate [Colace] 100 mg PO BID 08/31/16 [History] Donepezil [Aricept] 10 mg PO DAILY 08/31/16 [History] Folic Acid 1 mg PO DAILY 08/31/16 [History] Lidocaine 4% CRM (LMX) [Lmx 4] 1 appl TP Q4H PRN 08/31/16 [History] Lisinopril [Zestril] 5 mg PO DAILY 08/31/16 [History] Melatonin/Pyridoxine HCl (B6) [Melatonin 3 mg Tablet] 6 mg PO HS 08/31/16 [ History] Ondansetron HCl [Zofran] 4 mg PO Q4H PRN 08/31/16 [History] Polyethylene Glycol 3350 [MiraLAX bowel prep] 17 gm PO DAILY PRN 08/31/16 [ History] RisperiDONE [Risperdal] 0.5 mg PO BID 08/31/16 [History] Sertraline [Zoloft] 50 mg PO DAILY 08/31/16 [History] Simvastatin [Zocor] 40 mg PO DAILY 08/31/16 [History] Cefdinir [Omnicef] 300 mg PO BID #10 capsule 09/03/16 [Rx] Allergies/Adverse Reactions: Allergies No Known Allergies Allergy (Verified 08/31/16 09:55) - Respiratory Orders Smoking Cessation: Smoking cessation has been advised. For more information, call the [place] Tobacco Quit Line at 7-931-EOAR-NOW. - Advance Directives Code Status: Full Code - Mobility Orders Ambulate - Diet Orders Cardiac CERTIFICATION: I certify that the transfer of the above named patient to an Extended Care Facility is necessary for the continuing treatment of the diagnosis listed. The above information is true and accurate reflection of patient's current condition. Confidential - Redisclosure prohibited without a patient's written consent.
--- NOTE | 2016-09-03 09:33 | Discharge Summary ---
Date of Encounter: 09/03/16 Time of Encounter: 09:32 - Discharge Diagnosis (1) Ankle pain, right Priority: Primary Status: Acute Qualifiers: Chronicity: acute Qualified Code(s): M25.571 - Pain in right ankle and joints of right foot (2) CAD (coronary artery disease) Priority: Secondary Status: Chronic Qualifiers: Coronary Disease-Associated Artery/Lesion type: redding artery [place] vs. transplanted heart: redding heart Associated angina: without angina Qualified Code(s): I25.10 - Atherosclerotic heart disease of [place] coronary artery without angina pectoris (3) Depression Priority: Secondary Status: Chronic Qualifiers: Depression Type: unspecified Qualified Code(s): F32.9 - Major depressive disorder, single episode, unspecified (4) Infection due to human metapneumovirus (hMPV) Priority: Primary Status: Acute (5) Syncope Priority: Primary Status: Resolved Qualifiers: Syncope type: unspecified Qualified Code(s): R55 - Syncope and collapse (6) UTI (urinary tract infection) Priority: Primary Status: Acute Qualifiers: Urinary tract infection type: acute cystitis Hematuria presence: without hematuria Qualified Code(s): N30.00 - Acute cystitis without hematuria (7) Dementia Priority: Secondary Status: Chronic Qualifiers: Dementia type: unspecified type Dementia behavioral disturbance: without behavioral disturbance Qualified Code(s): F03.90 - Unspecified dementia without behavioral disturbance - Discharge Medications Prescriptions: Cefdinir [Omnicef] 300 mg PO BID #10 capsule Home Medications: Acetaminophen [Tylenol] 1,000 mg PO BID 08/31/16 [History] Aspirin [Lo-Dose Aspirin EC] 81 mg PO DAILY 08/31/16 [History] Calcium Carbonate [Calcium] 600 mg PO DAILY 08/31/16 [History] Carvedilol [Coreg] 12.5 mg PO BID 08/31/16 [History] Dextromethorphan HBr/Quinidine [Nuedexta 20-10 mg Capsule] 1 cap PO BID [History] Divalproex (24 HR) [Depakote ER (24 HR)] 250 mg PO BID 08/31/16 [History] Docusate [Colace] 100 mg PO BID 08/31/16 [History] Donepezil [Aricept] 10 mg PO DAILY 08/31/16 [History] Folic Acid 1 mg PO DAILY 08/31/16 [History] Lidocaine 4% CRM (LMX) [Lmx 4] 1 appl TP Q4H PRN 08/31/16 [History] Lisinopril [Zestril] 5 mg PO DAILY 08/31/16 [History] Melatonin/Pyridoxine HCl (B6) [Melatonin 3 mg Tablet] 6 mg PO HS 08/31/16 [ History] Ondansetron HCl [Zofran] 4 mg PO Q4H PRN 08/31/16 [History] Polyethylene Glycol 3350 [MiraLAX bowel prep] 17 gm PO DAILY PRN 08/31/16 [ History] RisperiDONE [Risperdal] 0.5 mg PO BID 08/31/16 [History] Sertraline [Zoloft] 50 mg PO DAILY 08/31/16 [History] Simvastatin [Zocor] 40 mg PO DAILY 08/31/16 [History] Cefdinir [Omnicef] 300 mg PO BID #10 capsule 09/03/16 [Rx] Allergies/Adverse Reactions: Allergies No Known Allergies Allergy (Verified 08/31/16 09:55) Procedures/tests Complete & Pending: Procedures Performed prior 72 hours Category Date Time Status CT abd pelvis wo no iv no oral [CT] Stat Cat Scan 09/02/16 13:15 Completed ECG 12 lead ECG [ECG] Routine Y 09/01/16 04:50 Completed EV carotid duplex imaging BI Routine Y 08/31/16 15:17 Completed EV echocardiogram Routine Y 08/31/16 15:28 Completed Date of admission: 08/31/16 13:30 Primary care physician: PCP NO Consults: 08/31/16 15:39 Consult to [facility] [CONS] Routine Reason for SW Consult: lives in senior care, needs walker/cane Discharging clinician: Tyson Geronimo Anticipated date of discharge: 09/03/16 - Patient Status Disposition: Transfer SNF Condition: Fair Functional capacity at discharge: independent ambulation Overall status at discharge: patient is progressing back to baseline - Discharge Instructions Instructions: Urinary Tract Infection in Women (DC), Syncope (DC), Depression ( DC) Follow Up With: NO,PCP [Primary Care Provider] - - Diet and Activity Activity: resume usual activities as tolerated Diet: low fat, low cholesterol, low salt diet Interval History: See below Hospital course: Ms. Graham is a 71 year old female with PMH of HTN, Depression, Dementia, resident of SNF Presented with syncope and fall, she also had URI and UTi symptoms at the SNF, prior to syncopal event. Work up for syncope was unremarkable. Head CT was negative for acute intracranial abnormality, but did show chronic microvasuclar ischemia. EKG in ED showed sinus rhythm with sinus arrhythmia, rate 73, VA int 159, QRS 92, and QTc 413. CBC, chem WNL.. ECHO showed LVEF 65% , mild LVH, Mild LVDD, small pericardial effusion without tamponade, and Carotid doppler with no significant stenotic plaques. Patient had complained of ankle pain and X-ray did not reveal a fracture She also had E.Coli UTI for which she received IV antibiotics Her URI was possibly caused by human metapneumovirus, for which she was managed supportively She is seen at bedside today with no new complains Her vital signs and labs have been stable She has no remarkable systemic exam, no events on telemetry She is stable to be discharged back to her SNF to continue her antibiotics orally for 5 more days. Other home medications may be continued Patient reports immunization is UTD - Time Spent with Patient Total time spent providing and/or coordinating discharge services: Less than 30 minutes - Constitutional Vitals: Temp Pulse Resp BP Pulse Ox 98.3 F 94 16 159/67 96 09/03/16 06:27 09/03/16 06:27 09/03/16 06:27 09/03/16 06:27 09/03/16 06:27 General appearance: Present: cooperative, A&O X 3, pleasant, answers questions appropriately - Head Head exam: Present: atraumatic, normocephalic - Eye Eye exam: Present: PERRL, conjuntiva pink, sclera anicteric Pupils: Present: PERRL - Neck Neck exam general surgery: Present: supple, trachea midline. Absent: lymphadenopathy - Respiratory Respiratory exam: Present: CTAB. Absent: accessory muscle use, rales, rhonchi, wheezes - Cardiovascular Cardiovascular exam: Present: RRR, +S1, +S2. Absent: diastolic murmur, gallop, rubs, systolic murmur - GI/Abdominal GI/Abdominal exam: Present: normal bowel sounds, soft, no peritoneal signs. Absent: distended, tenderness - Extremities Exam Extremities exam: Present: warm, radial pulses palpable and symetrical. Absent : calf tenderness, cyanotic, pedal edema - Neurological Exam Neurological exam: Present: alert, CN II-XII intact, no focal deficits. Absent : pronater drift, facial droop, speech deficit - Skin Skin exam: Present: dry, intact
[2016-09-03] MEDS: risperiDONE 1 MG TABLET PO SCH (09:41)
[2016-09-03] MEDS: Divalproex (24 HR) 250 MG TABLET PO SCH (09:41)
[2016-09-03] MEDS: Folic Acid 1 MG TABLET PO SCH (09:41)
[2016-09-03] MEDS: Famotidine 20 MG TABLET PO SCH (09:42)
[2016-09-03] MEDS: Aspirin Enteric Coated 81 MG Tablet PO SCH (09:42)
[2016-09-03 11:01] VITALS: BP 159/64
== END 2016-09-03 13:07 ==
LOC: EMEROO 09:53 → 3BNU 09:53 → SUATTDRO 13:30 → 3BNU 13:58
PROVIDERS: ADMIT Registered Nurse; ATTEND Internal Medicine

== ENCOUNTER 2017-01-14 01:39 | Observation (INO) ==
[2017-01-14] MEDS ORDERED: Aspirin 81 MG TAB.CHEW PO ONE (01:51)
--- NOTE | 2017-01-14 01:58 | Emergency Department Note ---
Disposition Clinical Impression: Community acquired pneumonia Chest pain Qualifiers: Chest pain type: unspecified Qualified Code(s): R07.9 - Chest pain, unspecified Disposition: Admitted As Inpatient Condition: Fair Referrals: NONE,PCP [Primary Care Provider] - Forms: ED Satisfaction Letter Time of Disposition: 03:45 Chest Pain HPI - General Chief Complaint: ED Chest Pain Stated Complaint: chest pain Time Seen by Provider: 01/14/17 02:27 Source: patient, EMS Limitations: no limitations Vital Signs Reviewed: Yes Nursing Notes Reviewed: Yes - History of Present Illness HPI Narrative: 71-year-old female with chest pain at rest since 5:00 in the evening she states she had 10 out of 10 chest pain, aching pressure. Substernal with radiation to her neck. Patient felt nauseated and short of breath. Patient states that she has a history of CAD, hypertension, hyperlipidemia, history of stents. Denies: Fever, chills, diarrhea, constipation, hematuria, dysuria. Pt complaint: chest pain Onset (ago): hour(s) Duration: constant Onset: during rest Pain Location: substernal Severity: mild Severity scale (1-10): 10 Quality: aching, heaviness Pain Radiation: neck Improves with: nothing Worsens with: nothing Associated symptoms: Reports: nausea, diaphoresis, dyspnea. Denies: vomiting Treatments prior to arrival chest pain: none - Related Data Home Medications Medication Instructions Recorded Confirmed Acetaminophen [Tylenol] 1,000 mg PO BID 08/31/16 08/31/16 Aspirin [Lo-Dose Aspirin EC] 81 mg PO DAILY 08/31/16 08/31/16 Calcium Carbonate [Calcium] 600 mg PO DAILY 08/31/16 08/31/16 Carvedilol [Coreg] 12.5 mg PO BID 08/31/16 08/31/16 Dextromethorphan HBr/Quinidine 1 cap PO BID 08/31/16 08/31/16 [Nuedexta 20-10 mg Capsule] Divalproex (24 HR) [Depakote ER 250 mg PO BID 08/31/16 08/31/16 (24 HR)] Docusate [Colace] 100 mg PO BID 08/31/16 08/31/16 Donepezil [Aricept] 10 mg PO DAILY 08/31/16 08/31/16 Folic Acid 1 mg PO DAILY 08/31/16 08/31/16 Lidocaine 4% CRM (LMX) [Lmx 4] 1 appl TP Q4H PRN 08/31/16 08/31/16 Lisinopril [Zestril] 5 mg PO DAILY 08/31/16 08/31/16 Melatonin/Pyridoxine HCl (B6) 6 mg PO HS 08/31/16 08/31/16 [Melatonin 3 mg Tablet] Ondansetron HCl [Zofran] 4 mg PO Q4H PRN 08/31/16 08/31/16 Polyethylene Glycol 3350 [MiraLAX 17 gm PO DAILY PRN 08/31/16 08/31/16 bowel prep] RisperiDONE [Risperdal] 0.5 mg PO BID 08/31/16 08/31/16 Sertraline [Zoloft] 50 mg PO DAILY 08/31/16 08/31/16 Simvastatin [Zocor] 40 mg PO DAILY 08/31/16 08/31/16 Previous Rx's Medication Instructions Recorded Cefdinir [Omnicef] 300 mg PO BID #10 capsule 09/03/16 Allergies Allergy/AdvReac Type Severity Reaction Status Date / Time No Known Allergies Allergy Verified 01/14/17 01:40 Review of Systems: 10 Point ROS was performed and negative except as per below or as documented in HPI. Constitutional: Denies: fever Eyes: Denies: eye pain ENT: Denies: nasal congestion CV:+ CP Denies: edema Resp: Denies: cough, hemoptysis GI: Denies: abdominal pain, hematochezia Denies: dysuria, hematuria MSK: Denies: back pain, neck pain, extremity pain Skin: Denies: new rashes Neuro: Denies: paresthesias or weakness All systems ED: reviewed and negative except as stated. Review of Systems: As Per HPI Chest Pain PMH - Past Medical History Medical history: Reports: coronary artery disease, CVA, dementia, hyperlipidemia , myocardial infarction, osteoporosis, renal disease, TIA Surgical history: Reports: colectomy (secondary to colon cancer) Psychiatric history: Reports: depression TECHNOLOGY TRAINING ASSOCIATE history: Reports: no TECHNOLOGY TRAINING ASSOCIATE history - Social History Smoking Status: Never smoker Alcohol use: Reports: none Drug use: Reports: none Physical Exam Constitutional: Really female appears in no acute distress, appearing comfortable. Elevated blood pressure 170s systolic Eyes: PERRLA, sclera anicteric ENT & Mouth: NCAT, normal external ears bilaterally, MMM Neck: normal inspection, neck is supple Resp: CTA bilaterally, no resp distress CV: RRR, no m/g/r GI: normal inspection, soft, guarding on exam, pain out of proportion to exam. Back: normal inspection, no tenderness to palpation Neuro: A&O3, CNII-XII grossly intact, [place] Skin: on limited exam, skin intact with no rashes or lesions - General Limitations: no limitations General appearance: alert, in no apparent distress Course Course Narrative: 71-year-old female with history of CAD, she states she has had stents but is unclear historian. Chest pain workup including chest x-ray CBC BMP troponin, EKG shows no ischemic changes we will get nitroglycerin trial for the patient, and aspirin reassess. - Reevaluation(s) Reevaluation #1: Admitted to Dr Hunt for CAP, CHest Pain, Added CT Thorax for pericardial effusion and to better characterize lungs, HD stable condition. Time: 03:44 Vital Signs Temperature 97.8 F 01/14/17 01:45 Pulse Rate 68 01/14/17 01:45 Respiratory Rate 16 01/14/17 01:45 Blood Pressure 178/78 01/14/17 01:45 O2 Sat by Pulse Oximetry 97 01/14/17 01:45 Temperature 97.8 F 01/14/17 01:45 Pulse Rate 57 01/14/17 01:57 Respiratory Rate 16 01/14/17 01:57 Blood Pressure 171/81 01/14/17 01:57 O2 Sat by Pulse Oximetry 97 01/14/17 01:57 Oxygen Delivery Oxygen Delivery Room Air Chest Pain - [facility] Narrative Medical decision making narrative: 71yof admitted for chest pain, CAP, started on ROcephin and Azithromycin - Differential Diagnosis Likely: atypical chest pain, chest pain - Medical Records Medical records reviewed: Yes I reviewed the patient's medical records. - Lab Data Lab results reviewed: Yes I reviewed the patient's lab results. Result diagrams: 01/14/17 01:57 01/14/17 01:57 Lab Results 01/14/17 01/14/17 01/14/17 Range/Units 01:57 01:57 01:57 WBC 6.7 (4.3-11.1) K/mcL RBC 4.42 (3.82-4.97) M/mcL Hgb 12.4 (11.5-15.4) g/dL Hct 38.9 (35.3-44.9) % MCV 88.0 (83.0-100.0) fL MCH 28.1 (28.0-33.3) pg MCHC 31.9 (31.6-35.5) g/dL RDW 13.5 (11.5-14.5) % Plt Count 195 (140-400) K/mcL MPV 10.0 (9.4-12.4) fL Immature Gran % 0.3 (0-4) % Seg Neutrophils % 64.5 % Lymphocytes % 25.3 % Monocytes % 8.6 % Eosinophils % 0.8 % Basophils % 0.5 % Neutrophils # 4.3 (1.6-8.9) K/mcL Lymphocytes # 1.7 (0.6-4.6) K/mcL Monocytes # 0.6 (0.0-1.3) K/mcL Eosinophils # 0.1 (0.0-0.6) K/mcL Basophils # 0.0 (0.0-0.2) K/mcL Sodium 139 (136-145) mEq/L Potassium 3.6 (3.5-4.5) mEq/L Chloride 106 (98-109) mEq/L Carbon Dioxide 27 (19-29) mEq/L BUN 16 (7-20) mg/dL Creatinine 0.76 (0.57-1.11) mg/dL Est GFR ( Amer) > 60 (> 60) Est GFR (Non-Af Amer) > 60 (> 60) BUN/Creatinine Ratio 21 (6-26) Glucose 93 (70-99) mg/dL Calculated Osmolality 289 (280-300) Calcium 8.8 (8.6-10.8) mg/dL Total Bilirubin 0.4 (0.2-1.2) mg/dL Direct Bilirubin 0.2 (0.0-0.5) mg/dL Indirect Bilirubin 0.2 (0.0-1.2) mg/dL AST 13 (5-34) Units/L ALT 9 (0-55) Units/L Alkaline Phosphatase 60 (38-126) Units/L Troponin I (0-0.03) ng/mL B-Natriuretic Peptide 28 (0-100) pg/mL Serum Total Protein 6.6 (6.0-8.3) g/dL Albumin 3.3 L (3.5-5.0) g/dL Globulin 3.3 (2.4-3.5) g/dL Albumin/Globulin Ratio 1.0 L (1.1-2.2) Lipase 38 (8-78) Units/L 01/14/17 Range/Units 01:57 WBC (4.3-11.1) K/mcL RBC (3.82-4.97) M/mcL Hgb (11.5-15.4) g/dL Hct (35.3-44.9) % MCV (83.0-100.0) fL MCH (28.0-33.3) pg MCHC (31.6-35.5) g/dL RDW (11.5-14.5) % Plt Count (140-400) K/mcL MPV (9.4-12.4) fL Immature Gran % (0-4) % Seg Neutrophils % % Lymphocytes % % Monocytes % % Eosinophils % % Basophils % % Neutrophils # (1.6-8.9) K/mcL Lymphocytes # (0.6-4.6) K/mcL Monocytes # (0.0-1.3) K/mcL Eosinophils # (0.0-0.6) K/mcL Basophils # (0.0-0.2) K/mcL Sodium (136-145) mEq/L Potassium (3.5-4.5) mEq/L Chloride (98-109) mEq/L Carbon Dioxide (19-29) mEq/L BUN (7-20) mg/dL Creatinine (0.57-1.11) mg/dL Est GFR ( Amer) (> 60) Est GFR (Non-Af Amer) (> 60) BUN/Creatinine Ratio (6-26) Glucose (70-99) mg/dL Calculated Osmolality (280-300) Calcium (8.6-10.8) mg/dL Total Bilirubin (0.2-1.2) mg/dL Direct Bilirubin (0.0-0.5) mg/dL Indirect Bilirubin (0.0-1.2) mg/dL AST (5-34) Units/L ALT (0-55) Units/L Alkaline Phosphatase (38-126) Units/L Troponin I 0.02 (0-0.03) ng/mL B-Natriuretic Peptide (0-100) pg/mL Serum Total Protein (6.0-8.3) g/dL Albumin (3.5-5.0) g/dL Globulin (2.4-3.5) g/dL Albumin/Globulin Ratio (1.1-2.2) Lipase (8-78) Units/L - Radiology Data Radiology results reviewed: Yes I reviewed the patient's radiology results. - EKG Data EKG attestation: Yes I reviewed and interpreted this EKG. EKG shows normal: sinus rhythm Rate: normal (56 bpm MS 168 QRS [address] segment elevations or depressions. Unchanged from previous EKG) Heart Score - Score History: Moderately Suspicious EKG: Normal Age: Greater than 65 Risk Factors: Equal/Greater than 3 risk factor or history of atherosclerotic disease Troponin: Less than normal limit HEART Score Total: 5
[2017-01-14 02:02] LABS: Basophils % 0.5 %; Eosinophils # 0.1 K/mcL (0.0-0.6); Eosinophils % 0.8 %; Hematocrit 38.9 % (35.3-44.9); Hemoglobin 12.4 g/dL (11.5-15.4); Immature Granulocytes % 0.3 % (0-4); Lymphocytes # 1.7 K/mcL (0.6-4.6); Lymphocytes % 25.3 %; Mean Corpuscular HGB Conc 31.9 g/dL (31.6-35.5); Mean Corpuscular Hemoglobin 28.1 pg (28.0-33.3); Monocytes # 0.6 K/mcL (0.0-1.3); Monocytes % 8.6 %; Neutrophils # 4.3 K/mcL (1.6-8.9); Platelet Count 195 K/mcL (140-400); Red Blood Count 4.42 M/mcL (3.82-4.97); Red Cell Distribution Width 13.5 % (11.5-14.5); Segmented Neutrophils % 64.5 %
--- NOTE | 2017-01-14 02:12 | Emergency Department Note ---
START Narrative - START START: I examined this patient and my medical decision-making was reviewed with the Resident Physician. I agree with the documented findings, disposition and treatment plan as described except to the extent set forth below. 71 year old female presents emergency room for chest pain and abdominal pain. She states her chest is hurting more than her abdomen. Her EKG is unchanged from previous. We will check abdominal labs as well as cardiac evaluation.
[2017-01-14 02:14] LABS: BUN/Creatinine Ratio 21 (6-26); Blood Urea Nitrogen 16 mg/dL (7-20); Calcium 8.8 mg/dL (8.6-10.8); Carbon Dioxide 27 mEq/L (19-29); Chloride 106 mEq/L (98-109); Glucose 93 mg/dL (70-99); Osmolality,Calculated 289 (280-300); Potassium 3.6 mEq/L (3.5-4.5); Sodium 139 mEq/L (136-145); eGFR For African Americans > 60 (> 60); eGFR For Non-African Americans > 60 (> 60)
[2017-01-14] MEDS: Nitroglycerin 0.4 MG TAB.SUBL SL ONE ×3 (02:16→02:26)
[2017-01-14 02:27] LABS: Alanine Aminotransferase 9 Units/L (0-55); Albumin 3.3 g/dL (3.5-5.0); Alkaline Phosphatase 60 Units/L (38-126); Aspartate Amino Transferase 13 Units/L (5-34); Bilirubin,Direct 0.2 mg/dL (0.0-0.5); Bilirubin,Indirect 0.2 mg/dL (0.0-1.2); Bilirubin,Total 0.4 mg/dL (0.2-1.2); Globulin 3.3 g/dL (2.4-3.5); Lipase 38 Units/L (8-78); Total Protein 6.6 g/dL (6.0-8.3)
[2017-01-14] MEDS ORDERED: Ondansetron 4 MG/2 ML VIAL IVP ONE (02:43)
[2017-01-14] MEDS ORDERED: *HR* HYDROmorphone (PF) 1 MG/ML SYRINGE IVP ONE (02:43)
[2017-01-14] MEDS ORDERED: Azithromycin 500 MG in D5% in Water 250 ML IVPB ONE (02:59)
[2017-01-14] MEDS ORDERED: Ondansetron ODT 4 MG TAB.RAPDIS PO PRN (04:05)
[2017-01-14] MEDS ORDERED: Naloxone 0.4 MG/ML INJ IVP PRN (04:07)
[2017-01-14] MEDS ORDERED: 0.9 % Sodium Chloride 1,000 ML IVC SCH (04:30)
--- NOTE | 2017-01-14 04:32 | Internal Med History&Physical ---
Date of Encounter: 01/14/17 Time of Encounter: 04:28 Assessment and Plan (1) Gastroenteritis Current visit: Yes Status: Acute likely related to food consumed during picnic . Possible s.aureus toxin related. Observe overnight for persistent/more symptoms. IVF for improvement of symptoms. Trial of tums (2) CAD (coronary artery disease) Current visit: No Status: Chronic continue med. Doubt chest pain related to cardiac issues given clinical hx - suspicious for GI, heart burn from emesis. Trend trop Qualifiers: Coronary Disease-Associated Artery/Lesion type: [place] artery [place] vs. transplanted heart: [place] heart Associated angina: without angina Qualified Code(s): I25.10 - Atherosclerotic heart disease of [place] coronary artery without angina pectoris (3) Dementia Current visit: No Status: Chronic stable Qualifiers: Dementia type: unspecified type Dementia behavioral disturbance: without behavioral disturbance Qualified Code(s): F03.90 - Unspecified dementia without behavioral disturbance (4) Depression Current visit: No Status: Chronic stable. continue med Qualifiers: Depression Type: unspecified Qualified Code(s): F32.9 - Major depressive disorder, single episode, unspecified Internal Medicine - H&P: HPI Chief complaint: Abdominal pain, emesis, diarrhea, chest pain History of present illness: Ms. Graham is a 71 year old female from assisted living who was admitted for observation of upper and lower GI symptoms associated with chest pain. She tells me that she went for a picnic yesterday afternoon and had ice cream, lemonade, beef and potato salad. Shortly after within the day, she developed non -blood diarrhea a couple of times associated with nausea and emesis described as red - unconfirmed whether there is blood. Shortly after the emesis, she developed 10/10 chest pressure. No relief with nitro but better with dilaudid. EKF reviewed with sinus bradycardia rate 55. CT C/A/P was performed w/o acute findings per my impression taken into account of her clinical hx. Past Med Surg Social Fam HX - Past Medical History Medical history: coronary artery disease, CVA, dementia, hyperlipidemia, myocardial infarction, osteoporosis, renal disease, TIA Psychiatric history: depression - Past Surgical History Surgical History: colectomy (secondary to colon cancer) - Social History Smoking Status: Never smoker Smokeless Tobacco Status: No Alcohol use: none Drug use: none - Family History Father Living Status: Hx Family Cardiac Disorders: Yes ([place]) Hx Family Neurologic Disorders: Yes (CVA) Mother Living Status: Hx Family Endocrine Disorder: Yes (DM) Internal Medicine - H&P: Meds Acetaminophen [Tylenol] 1,000 mg PO BID 08/31/16 [History] Aspirin [Lo-Dose Aspirin EC] 81 mg PO DAILY 08/31/16 [History] Calcium Carbonate [Calcium] 600 mg PO DAILY 08/31/16 [History] Carvedilol [Coreg] 12.5 mg PO BID 08/31/16 [History] Dextromethorphan HBr/Quinidine [Nuedexta 20-10 mg Capsule] 1 cap PO BID [History] Divalproex (24 HR) [Depakote ER (24 HR)] 250 mg PO BID 08/31/16 [History] Docusate [Colace] 100 mg PO BID 08/31/16 [History] Donepezil [Aricept] 10 mg PO DAILY 08/31/16 [History] Folic Acid 1 mg PO DAILY 08/31/16 [History] Lidocaine 4% CRM (LMX) [Lmx 4] 1 appl TP Q4H PRN 08/31/16 [History] Lisinopril [Zestril] 5 mg PO DAILY 08/31/16 [History] Melatonin/Pyridoxine HCl (B6) [Melatonin 3 mg Tablet] 6 mg PO HS 08/31/16 [ History] Ondansetron HCl [Zofran] 4 mg PO Q4H PRN 08/31/16 [History] Polyethylene Glycol 3350 [MiraLAX bowel prep] 17 gm PO DAILY PRN 08/31/16 [ History] RisperiDONE [Risperdal] 0.5 mg PO BID 08/31/16 [History] Sertraline [Zoloft] 50 mg PO DAILY 08/31/16 [History] Simvastatin [Zocor] 40 mg PO DAILY 08/31/16 [History] Cefdinir [Omnicef] 300 mg PO BID #10 capsule 09/03/16 [Rx] Allergies No Known Allergies Allergy (Verified 01/14/17 01:40) All Systems PM: A 10-system review of systems was performed and is negative for pertinent findings except as documented above in the HPI. Review of systems: ROS 14 point review of systems reviewed as best as possible given presentation. Pertinent positive or negative as per HPI or otherwise reviewed as negative - Constitutional Vitals: Temp Pulse Resp BP Pulse Ox 97.8 F 64 18 104/74 98 01/14/17 01:45 01/14/17 03:31 01/14/17 04:21 01/14/17 04:21 01/14/17 03:31 Exam: General - AAO x 3 Psych - Appropriate affect/speech. No agitation Eyes - KARI. Eye lids intact. No scleral icterus ENT - Oral mucosa pink, dentition intact. External ear clear/dry/intact. No thyromegaly Lymphatics - No cervical/inguinal lympadenopathy Neuro - No gross peripheral or central neuro deficits with intact CN 2-12 exam Heart - Sinus. RRR. S1 and S2 present. No added HS/murmurs appreciated. No elevated JVD appreciated. +1 edema lower extremity Lung - Adequate air entry b/l, No crackes/wheezes appreciated GI - Soft, non-tender. No hepatosplenomegaly/ascities. BS+ - No CVA/suprapubic tenderness or palpable bladder distension Skin - Intact. No rash/petechiae/ecchymosis. Warm extremities MSK - Joints with normal ROM. No joint swellings Internal Med - H&P Results - Labs CBC & Chem 7: 01/14/17 01:57 01/14/17 01:57
[2017-01-14] MEDS ORDERED: Divalproex (12 HR) 250 MG TABLET PO SCH (09:00)
[2017-01-14] MEDS ORDERED: Folic Acid 1 MG TABLET PO SCH (09:00)
[2017-01-14] MEDS ORDERED: risperiDONE 0.25 MG TABLET PO SCH (09:00)
[2017-01-14] MEDS ORDERED: Aspirin Enteric Coated 81 MG Tablet PO SCH (09:00)
--- NOTE | 2017-01-14 10:01 | Event Note ---
Date of Encounter: 01/14/17 Time of Encounter: 09:30
[2017-01-14 11:59] VITALS: BP 158/76
--- NOTE | 2017-01-14 12:14 | Discharge Summary ---
Date of Encounter: 01/14/17 Time of Encounter: 09:40 - Discharge Diagnosis (1) Gastroenteritis Priority: Primary Status: Acute (2) Chest pain Priority: Primary Status: Acute Qualifiers: Chest pain type: other chest pain Qualified Code(s): R07.89 - Other chest pain; R07.8 - Other chest pain (3) Dementia Priority: Secondary Status: Chronic Qualifiers: Dementia type: unspecified type Dementia behavioral disturbance: without behavioral disturbance Qualified Code(s): F03.90 - Unspecified dementia without behavioral disturbance (4) CAD (coronary artery disease) Priority: Secondary Status: Chronic Qualifiers: Coronary Disease-Associated Artery/Lesion type: [place] artery [place] vs. transplanted heart: [place] heart Associated angina: without angina Qualified Code(s): I25.10 - Atherosclerotic heart disease of [place] coronary artery without angina pectoris - Discharge Medications Home Medications: Acetaminophen [Tylenol] 1,000 mg PO BID 08/31/16 [History] Aspirin [Lo-Dose Aspirin EC] 81 mg PO DAILY 08/31/16 [History] Calcium Carbonate [Calcium] 600 mg PO DAILY 08/31/16 [History] Carvedilol [Coreg] 12.5 mg PO BID 08/31/16 [History] Dextromethorphan HBr/Quinidine [Nuedexta 20-10 mg Capsule] 1 cap PO BID [History] Divalproex (24 HR) [Depakote ER (24 HR)] 250 mg PO BID 08/31/16 [History] Docusate [Colace] 100 mg PO BID 08/31/16 [History] Donepezil [Aricept] 10 mg PO DAILY 08/31/16 [History] Folic Acid 1 mg PO DAILY 08/31/16 [History] Lidocaine 4% CRM (LMX) [Lmx 4] 1 appl TP Q4H PRN 08/31/16 [History] Lisinopril [Zestril] 5 mg PO DAILY 08/31/16 [History] Melatonin/Pyridoxine HCl (B6) [Melatonin 3 mg Tablet] 6 mg PO HS 08/31/16 [ History] Ondansetron HCl [Zofran] 4 mg PO Q4H PRN 08/31/16 [History] Polyethylene Glycol 3350 [MiraLAX bowel prep] 17 gm PO DAILY PRN 08/31/16 [ History] RisperiDONE [Risperdal] 0.5 mg PO BID 08/31/16 [History] Sertraline [Zoloft] 50 mg PO DAILY 08/31/16 [History] Simvastatin [Zocor] 40 mg PO DAILY 08/31/16 [History] Allergies/Adverse Reactions: Allergies No Known Allergies Allergy (Verified 01/14/17 01:40) Date of admission: 01/14/17 03:46 Primary care physician: PCP NONE Consults: 01/14/17 05:09 Consult to Pastoral Services [CONS] Routine Comment: Consult to Pastrycook'S Assistant [CONS] Routine Reason for SW Consult: resident of [facility] Discharging clinician: Hannah Talamantes Anticipated date of discharge: 01/14/17 - Patient Status Disposition: Transfer SNF Condition: Fair Functional capacity at discharge: independent ambulation Overall status at discharge: patient is progressing back to baseline - Discharge Instructions Instructions: Chest Pain (DC), Urinary Tract Infection in Women (DC), Syncope ( DC), Depression (DC), Gastroenteritis (DC), Pneumonia (DC) Follow Up With: NONE,PCP [Primary Care Provider] - Additional Instructions: F/up with PCP in 1-2 weeks - Diet and Activity Activity: as per physical therapy Diet: low fat, low cholesterol, low salt diet Hospital course: Ms. Graham is a 71 year old female with history of dementia, was sent from residential for evaluation of chest pain and diarrhea. Patient was noted to have possible gastroenteritis from food poisoning after recent picnic. Initial labs showed no acute abnormality. She also reported some left-sided chest pain , which could be noncardiac. Initial EKG, telemetry and serial troponins were not concerning for ACS. Patient remained hemodynamically stable and responded to IV hydration and supportive care. Of note, patient continues to report significant pain in her left breast, however examination revealed no erythema/induration/mass in her left breast and she was noted to be lying down comfortably in bed. Pain is difficult to be assessed due to her mental status and confusion. CT chest/abdomen/pelvis were done in the emergency room which showed no abnormalities in the soft tissues, no pneumonia and no abdominal abnormality. She is currently medically stable for discharge back to her residential and outpatient follow-up. - Time Spent with Patient Total time spent providing and/or coordinating discharge services: Greater than 30 minutes (40 min) - Constitutional Vitals: Temp Pulse Resp BP Pulse Ox 98.4 F 78 17 158/76 97 01/14/17 11:57 01/14/17 11:57 01/14/17 11:57 01/14/17 11:57 01/14/17 11:57 General appearance: Present: A&O X 1. Absent: answers questions appropriately - Respiratory Respiratory exam: Present: CTAB. Absent: accessory muscle use, rales, rhonchi, wheezes - Cardiovascular Cardiovascular exam: Present: RRR, +S1, +S2. Absent: diastolic murmur, gallop, rubs, systolic murmur
--- NOTE | 2017-01-14 12:17 | Physician Discharge Referral ---
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 Prognosis: Fair - Transfer Medications Home Medications: Acetaminophen [Tylenol] 1,000 mg PO BID 08/31/16 [History] Aspirin [Lo-Dose Aspirin EC] 81 mg PO DAILY 08/31/16 [History] Calcium Carbonate [Calcium] 600 mg PO DAILY 08/31/16 [History] Carvedilol [Coreg] 12.5 mg PO BID 08/31/16 [History] Dextromethorphan HBr/Quinidine [Nuedexta 20-10 mg Capsule] 1 cap PO BID [History] Divalproex (24 HR) [Depakote ER (24 HR)] 250 mg PO BID 08/31/16 [History] Docusate [Colace] 100 mg PO BID 08/31/16 [History] Donepezil [Aricept] 10 mg PO DAILY 08/31/16 [History] Folic Acid 1 mg PO DAILY 08/31/16 [History] Lidocaine 4% CRM (LMX) [Lmx 4] 1 appl TP Q4H PRN 08/31/16 [History] Lisinopril [Zestril] 5 mg PO DAILY 08/31/16 [History] Melatonin/Pyridoxine HCl (B6) [Melatonin 3 mg Tablet] 6 mg PO HS 08/31/16 [ History] Ondansetron HCl [Zofran] 4 mg PO Q4H PRN 08/31/16 [History] Polyethylene Glycol 3350 [MiraLAX bowel prep] 17 gm PO DAILY PRN 08/31/16 [ History] RisperiDONE [Risperdal] 0.5 mg PO BID 08/31/16 [History] Sertraline [Zoloft] 50 mg PO DAILY 08/31/16 [History] Simvastatin [Zocor] 40 mg PO DAILY 08/31/16 [History] Allergies/Adverse Reactions: Allergies No Known Allergies Allergy (Verified 01/14/17 01:40) - Respiratory Orders Smoking Cessation: Smoking cessation has been advised. For more information, call the [place] Tobacco Quit Line at 5-679-QEYY-NOW. - Advance Directives Code Status: Full Code - Mobility Orders Ambulate - Rehabiliation Orders Rehab Potential: Good Rehab Orders: ROM Exercises, Evaluation for Physical Therapy, Evaluation for Occupational Therapy - Diet Orders Cardiac CERTIFICATION: I certify that the transfer of the above named patient to an Extended Care Facility is necessary for the continuing treatment of the diagnosis listed. The above information is true and accurate reflection of patient's current condition. Confidential - Redisclosure prohibited without a patient's written consent.
--- NOTE | 2017-01-14 18:22 | Electrocardiograph Report ---
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
--- NOTE | 2017-01-14 18:23 | Electrocardiograph Report ---
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
[2017-01-14] MEDS ORDERED: Melatonin 3 MG TABLET PO SCH (21:00)
== END 2017-01-14 14:25 ==
LOC: 3ANU 01:39 → EMEROO 01:39 → 3ANU 04:32
PROVIDERS: ADMIT Internal Medicine Hematology & Oncology; ATTEND Internal Medicine

== ENCOUNTER 2018-10-17 09:14 | Inpatient (IN) ==
--- NOTE | 2018-10-17 09:32 | Emergency Department Note ---
Disposition Clinical Impression: Left temporal lobe infarction, Nausea Syncope Qualifiers: Syncope type: unspecified Qualified Code(s): R55 - Syncope and collapse Disposition: Admitted As Inpatient Condition: Good General Adult HPI - General Chief complaint: ED Syncope Stated complaint: dizziness, syncopal episode, nausea Time Seen by Provider: 10/17/18 09:24 Source: patient, EMS Limitations: no limitations Nursing Notes Reviewed: Yes Vital Signs Reviewed: Yes - History of Present Illness HPI Narrative: 73-year-old female who presents the emergency department status post syncopal episode. The patient was reportedly seated at the breakfast table eating had an episode of vomiting and then was reportedly unresponsive for approximately 2-3 minutes. This occurred just prior to arrival. She now has no complaints at this time other than nausea and lightheadedness. She denies any headache, no discomfort with tingling, weakness, visual changes, chest pain, shortness of breath. Pain Scale: 6 - Related Data Home Medications Medication Instructions Recorded Confirmed Aspirin [Lo-Dose Aspirin EC] 81 mg PO DAILY 08/31/16 10/17/18 Calcium Carbonate [Calcium] 600 mg PO DAILY 08/31/16 10/17/18 Carvedilol [Coreg] 12.5 mg PO BID 08/31/16 10/17/18 Divalproex (24 HR) [Depakote ER 375 mg PO BID 08/31/16 10/17/18 (24 HR)] Donepezil [Aricept] 10 mg PO DAILY 08/31/16 10/17/18 Folic Acid 1 mg PO DAILY 08/31/16 10/17/18 Lisinopril [Zestril] 5 mg PO DAILY 08/31/16 10/17/18 Melatonin/Pyridoxine HCl (B6) 6 mg PO HS 08/31/16 10/17/18 [Melatonin 3 mg Tablet] Polyethylene Glycol 3350 [MiraLAX 17 gm PO DAILY PRN 08/31/16 10/17/18 bowel prep] RisperiDONE [Risperdal] 0.5 mg PO BID 08/31/16 10/17/18 Sertraline [Zoloft] 150 mg PO DAILY 08/31/16 10/17/18 Simvastatin [Zocor] 40 mg PO DAILY 08/31/16 10/17/18 ALPRAZolam [Xanax 0.5 MG Tablet] 0.5 mg PO BID 10/17/18 10/17/18 Acetaminophen [Tylenol] 1,000 mg PO ONCE 10/17/18 10/17/18 Diclofenac Sodium [Voltaren] 1 appl TP QID 10/17/18 10/17/18 Allergies Allergy/AdvReac Type Severity Reaction Status Date / Time No Known Allergies Allergy Verified 01/14/17 01:40 Review of Systems: ROS per history of present illness, all other systems reviewed and negative or normal. All systems ED: reviewed and negative except as stated. 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 No apparent distress. Follow commands. Appears stated age. Neck: No JVD. Trachea midline. Neck supple. Eyes: PERRL. No scleral icterus. HENT: Normocephalic and atraumatic. Moist mucus membranes. Cardiovascular: Regular rate and rhythm. Normal S1 and S2. No murmurs appreciated. Normal capillary refill. Extremities well perfused with 2+ distal pulses bilaterally. No edema. Pulmonary: Normal and equal breath sounds bilaterally, anteriorly and posteriorly. No wheezes, rales, or rhonchi. Not in respiratory distress. Speaks in full sentences. Abdomen: Soft, nondistended, and tontender. No bruits or masses. No guarding. Neuro: Alert and oriented to person, place, and time. CN II-XII tested and grossly intact. No hemineglect. Speech is fluid and without slurring. Sensory: Sensation intact to light touch in all extremities. Motor: Normal tone and bulk. No pronator drift. 5/5 strength in LUE 5/5 strength in RUE 5/5 strength in LLE 5/5 strength in RLE Coordination: Finger to nose and heel to friedman testing intact bilaterally. Reflexes: Brachioradialis, biceps, and patellar reflexes 2+ and symmetric bilaterally. Skin: No rashes noted on visualized skin. Musculoskeletal: No bony abnormalities visualized. Moves all extremities. Psych: Normal mood. Pleasant. Makes appropriate eye contact. - General Limitations: no limitations General appearance: alert, in no apparent distress Course - Consultations Consultation #1: Discussed case with Dr. Zapata, neurologist who recommends MRI and CTA to evaluate for posterior circulation dysfunction given her nausea and vomiting. He will evaluate the patient and determine need for changing asirin to plavix. Recommends admitting to hospitalist and he will consult to see the patient. Time: 11:21 Vital Signs Temperature 98.7 F 10/17/18 09:21 Pulse Rate 58 10/17/18 09:21 Respiratory Rate 16 10/17/18 09:21 Blood Pressure 146/48 10/17/18 09:21 O2 Sat by Pulse Oximetry 95 10/17/18 09:21 Temperature 98.7 F 10/17/18 09:21 Pulse Rate 73 10/17/18 13:07 Respiratory Rate 20 10/17/18 13:07 Blood Pressure 119/92 10/17/18 13:07 O2 Sat by Pulse Oximetry 93 10/17/18 13:07 Oxygen Delivery Oxygen Delivery Room Air Medical Decision Making - [facility] Narrative Medical decision making narrative: 73-year-old female who presents the emergency department with complaints of syncopal episode, nausea and abdominal pain. On arrival the patient's vital signs are stable. She is alert and oriented 3. She is nauseated and has abdominal tenderness from the umbilicus to the suprapubic area. She otherwise has no neurologic deficits. We did obtain head CT, CT abdomen pelvis, CBC, BMP, troponin, EKG. Given the patient's chronicity of symptoms and indeterminate timeline of her onset of symptoms did not initiate stroke alert. CBC shows no significant anemia. BMP shows no significant like to light abdomen is. TSH within normal limits. Troponin undetectable 1. Urinalysis shows evidence of urinary tract infection. We did obtain CT abdomen which shows no significant eyebrow days. CT head does show left temporal lobe infarct likely acute nature. Given the unknown courtesy of the patient's symptoms we contacted neurology here at Dr. Benny Guerrero to confirm plan for this patient. They do not recommend consultation with [facility] neurology for acute intervention. They do recommend CTA of the head and neck given the patient has nausea and vomiting to determine posterior circulation involvement as well as MRI. The patient was given fluids, aspirin and Zofran. Discussed case with on-call hospitalist Dr. Rodriguez who agrees with plan for admission and accepts the patient to the inpatient service. Patient agrees with and understands course of treatment plan including plan for admission. All questions answered. Abdomen/Pelvis CT 10/17/18 09:32 IMPRESSION: 1. Bilateral renal cysts largest 2.8 cm in the left lobe. 2. No acute infective or inflammatory process. 3. Old L2 compression fracture of about 50% decrease in height. D/ / Silviano Rabago MD / Silviano Rabago MD Interpreting Provider: Silviano Rabago MD Head CT 10/17/18 09:33 IMPRESSION: 1. Cerebral atrophy and chronic small vessel ischemic changes plus old lacunar infarct right thalamus. 2. Area of cortical/subcortical effacement mid left temporal lobe suggestive of acute infarct. 3. No evidence for acute intracranial hemorrhage. D/ / Silviano Rabago MD / Silviano Rabago MD Interpreting Provider: Silviano Rabago MD [address] findings we will discuss with neurology; we really do not have a time of when things occurred today but it sounds like it might of been this morning when she had the episode of vomiting. But were uncertain. We will see how neurology wants to proceed with this. 1140 hrs.: Spoke with Dr. Zapata on neurology, he wanted a CTA and then consult. We will admit to the hospitalist. She is fine and she is asking for something eat, keep her nothing by mouth until we have better understanding of what happened today. Impression is acute CVA per CT with uncertain etiology of time we will admit her here at the hospital versus transferring to [facility]. She is in agreement with the plan. - Medical Records Medical records reviewed: Yes I reviewed the patient's medical records. - Lab Data Lab results reviewed: Yes I reviewed the patient's lab results. Result diagrams: 10/17/18 09:40 10/17/18 09:40 Lab Results 10/17/18 10/17/18 10/17/18 Range/Units 09:40 09:40 11:20 WBC 6.7 (4.3-11.1) K/mcL RBC 4.22 (3.82-4.97) M/mcL Hgb 12.0 (11.5-15.4) g/dL Hct 37.7 (35.3-44.9) % MCV 89.3 (83.0-100.0) fL MCH 28.4 (28.0-33.3) pg MCHC 31.8 (31.6-35.5) g/dL RDW 13.6 (11.5-14.5) % Plt Count 212 (140-400) K/mcL MPV 10.9 (9.4-12.4) fL Immature Gran % 0.3 (0-4) % Seg Neutrophils % 70.8 % Lymphocytes % 18.9 % Monocytes % 8.6 % Eosinophils % 0.6 % Basophils % 0.8 % Neutrophils # 4.7 (1.6-8.9) K/mcL Lymphocytes # 1.3 (0.6-4.6) K/mcL Monocytes # 0.6 (0.0-1.3) K/mcL Eosinophils # 0.0 (0.0-0.6) K/mcL Basophils # 0.1 (0.0-0.2) K/mcL Sodium 142 (136-145) mEq/L Potassium 3.7 (3.5-5.1) mEq/L Chloride 105 (98-107) mEq/L Carbon Dioxide 27 (23-29) mEq/L BUN 18 (8-23) mg/dL Creatinine 0.99 (0.60-1.20) mg/dL Est GFR ( Amer) > 60 (> 60) Est GFR (Non-Af Amer) 55 L (> 60) BUN/Creatinine Ratio 18 (6-26) Glucose 90 (70-105) mg/dL Calculated Osmolality 295 (280-300) Calcium 9.1 (8.6-10.3) mg/dL Troponin I < 0.03 (< 0.04) ng/mL TSH 0.410 (0.340-5.600) mcIU/mL Urine Color Yellow (Yellow) Urine Clarity Cloudy A (Clear) Urine pH 7.0 (5.0-8.0) pH Units Ur Specific [place] 1.010 (1.010-1.025) Urine Protein Negative (Neg-Trace) mg/dL Urine Glucose (UA) Normal (Normal) mg/dL Urine Ketones Negative (Negative) mg/dL Urine Blood Small H (Negative) Urine Nitrite Positive A (Negative) Urine Bilirubin Negative (Negative) Urine Urobilinogen Normal (Normal) mg/dL Ur Leukocyte Esterase Moderate H (Negative) Urine Microscopic RBC 0-3 (0-3) per hpf Urine Microscopic WBC 15-30 H (0-3) per hpf Ur Squamous Epith Cells Many H (None-Few) per lpf Urine Bacteria Many H (None-Few) per hpf Hyaline Casts None Seen (None-Few) per lpf - Radiology Data Radiology results reviewed: Yes I reviewed the patient's radiology results. Abdomen/Pelvis CT 10/17/18 09:32 IMPRESSION: 1. Bilateral renal cysts largest 2.8 cm in the left lobe. 2. No acute infective or inflammatory process. 3. Old L2 compression fracture of about 50% decrease in height. D/ / Silviano Rabago MD / Silviano Rabago MD Interpreting Provider: Silviano Rabago MD Head CT 10/17/18 09:33 IMPRESSION: 1. Cerebral atrophy and chronic small vessel ischemic changes plus old lacunar infarct right thalamus. 2. Area of cortical/subcortical effacement mid left temporal lobe suggestive of acute infarct. 3. No evidence for acute intracranial hemorrhage. D/ / Silviano Rabago MD / Silviano Rabago MD Interpreting Provider: Silviano Rabago MD Head CTA 10/17/18 11:22 IMPRESSION: Mild, less than 50%, stenosis of the internal carotid arteries by NASCET criteria. No intracranial flow-limiting stenosis. D/ / 10/17/2018 12:56:06 Roger Lopez MD / ирина Interpreting Provider: Roger Lopez MD Neck CTA 10/17/18 11:22 IMPRESSION: Mild, less than 50%, stenosis of the internal carotid arteries by NASCET criteria. No intracranial flow-limiting stenosis. D/ / 10/17/2018 12:56:06 Roger Lopez MD / ирина Interpreting Provider: Roger Lopez MD - EKG Data EKG #1 EKG attestation: Yes I reviewed and interpreted this EKG. EKG results narrative: Normal sinus rhythm rate of 61. Normal intervals. No significant ST or T-wave changes indicating acute ischemia. When compared with prior from 01/14/17 there are no significant changes. Critical Care Time Critical Care Time: Yes Total Critical Care Time: 32 Attestation: Excluding any separately billable procedures. Attestation Statement - Attestation Attestation: This documentation is done with the assistance of Dragon dictation. Despite efforts made to ensure accuracy, there may be inaccuracies in educational advisor or spelling and typographical errors. I examined this patient and my medical decision-making was reviewed with the Resident Physician. I agree with the documented findings, disposition and treatment plan as described except to the extent set forth below. Patient seen and evaluated on arrival with EMS and Dr. Thomas, I agree with her evaluation and management plan, I supervised the care the patient's stay. Patient presents from custodial she was sitting down eating breakfast vomited and then got lightheaded sounds if she may have had a near-syncopal or syncopal episode. No injuries. She looks well now she does have dementia but she is able to little bit of history. Spoke with EMS and reviewed their charting and what was sent from nursing facility. We will order a workup on her and then reassess. She is complaining a little bit of abdominal pain but seems to have a nonsurgical abdomen. NIH Stroke Scale - Level of Consciousness LOC: Alert - LOC Questions LOC Questions: Answers both correctly - LOC Commands LOC Commands: Performs both correctly - Best Gaze Best Gaze: Normal - Visual Visual: No visual loss - Facial Palsy Facial Palsy: Normal - Motor Arms Motor Arm-Left: No drift for 10 seconds Motor Arm-Right: No drift for 10 seconds - Motor Legs Motor Leg-Left: No drift for 5 seconds Motor Leg-Right: No drift for 5 seconds - Limb Ataxia Limb Ataxia: Normal, No Ataxia - Sensory Sensory: Normal - Best Language Best Language: No aphasia - Dysarthria Dysarthria: Normal - Extinction and Inattention Extinction and Inattention: Normal - NIHSS Total Score NIHSS Total Score: 0
[2018-10-17] MEDS ORDERED: Ondansetron 4 MG/2 ML VIAL IVP STA ×2 (09:33→11:43)
[2018-10-17] MEDS ORDERED: 0.9 % Sodium Chloride 1,000 ML IVC STA (09:33)
[2018-10-17 10:11] LABS: Basophils # 0.1 K/mcL (0.0-0.2); Basophils % 0.8 %; Eosinophils % 0.6 %; Hematocrit 37.7 % (35.3-44.9); Immature Granulocytes % 0.3 % (0-4); Lymphocytes # 1.3 K/mcL (0.6-4.6); Lymphocytes % 18.9 %; Mean Corpuscular HGB Conc 31.8 g/dL (31.6-35.5); Mean Corpuscular Hemoglobin 28.4 pg (28.0-33.3); Mean Corpuscular Volume 89.3 fL (83.0-100.0); Mean Platelet Volume 10.9 fL (9.4-12.4); Monocytes # 0.6 K/mcL (0.0-1.3); Monocytes % 8.6 %; Neutrophils # 4.7 K/mcL (1.6-8.9); Platelet Count 212 K/mcL (140-400); Red Blood Count 4.22 M/mcL (3.82-4.97); Red Cell Distribution Width 13.6 % (11.5-14.5); Segmented Neutrophils % 70.8 %
[2018-10-17 10:26] LABS: BUN/Creatinine Ratio 18 (6-26); Blood Urea Nitrogen 18 mg/dL (8-23); Calcium 9.1 mg/dL (8.6-10.3); Carbon Dioxide 27 mEq/L (23-29); Chloride 105 mEq/L (98-107); Glucose 90 mg/dL (70-105); Osmolality,Calculated 295 (280-300); Potassium 3.7 mEq/L (3.5-5.1); Sodium 142 mEq/L (136-145); Troponin I < 0.03 ng/mL (< 0.04); eGFR For Non-African Americans 55 (> 60)
[2018-10-17] MEDS ORDERED: Isovue-370 500 ML BOTTLE IVP ONE (11:22)
[2018-10-17 11:35] LABS: Bilirubin,Urine Negative (Negative); Blood,Urine Small (Negative); Clarity,Urine Cloudy (Clear); Color,Urine Yellow (Yellow); Glucose,Urine (UA) Normal (Normal); Ketones,Urine Negative (Negative); Leukocyte Esterase,Urine Moderate (Negative); Nitrite,Urine Positive (Negative); Protein,Urine Negative (Neg-Trace); Urobilinogen,Urine Normal (Normal)
[2018-10-17 11:36] LABS: Bacteria,Urine Many per hpf (None-Few); Hyaline Casts,Urine None Seen per lpf (None-Few); Squamous Epithelial Cell,Urine Many per lpf (None-Few)
[2018-10-17] MEDS ORDERED: cefTRIAXone 1,000 MG in Water for inj. (sterile) 20 ML 10 ML IVP ONE (11:44)
[2018-10-17 11:52] LABS: RBC,Urine 0-3 per hpf (0-3)
[2018-10-17 11:53] LABS: WBC,Urine 15-30 per hpf (0-3)
[2018-10-17] MEDS ORDERED: Naloxone 0.4 MG/ML INJ IVP PRN (12:16)
--- NOTE | 2018-10-17 12:25 | Internal Med History&Physical ---
Date of Encounter: 10/17/18 Time of Encounter: 12:23 Internal Medicine - H&P: HPI Chief complaint: syncope Admitted From: Long-term Nursing Facility Plans for Post Hospital Care: Transfer Long-Term Facility History of present illness: Ms. Graham is a 73 year old female coronary artery disease, CVA, dementia, hyper lipidemia, hypertension since the emergency department with syncopal episode. Patient is a poor historian so history is extremely limited. Patient denies ever having an unresponsive episode and reports that she ate eggs and toast for breakfast and immediately started vomiting. She denies numbness or weakness of any of her extremities, she denies any facial drooping, denies lites of function of her extremities. She does report urinary frequency however denies dysuria or burning. No recent head trauma, denies palpitations, chest pain, shortness of breath, leg swelling, seizure history, recent falls, Most of the history is obtained from the ED physician. As per ED physician reportedly she was unresponsive for approximately 2-3 minutes. While in the emergency department she had complained of nausea and lightheadedness so CT abdomen and pelvis was performed without any acute findings. While in the emergency department CT head showed acute stroke, [facility] was consulted and rectum commended CTA of the head and the neck along with MRI recommended to change the aspirin to Plavix and admission for further stroke workup. Past Med Surg Social Fam HX - Past Medical History Medical history: coronary artery disease, CVA, dementia, hyperlipidemia, hypertension, myocardial infarction, osteoporosis, renal disease, TIA Additional medical history: UTI, Psychiatric history: depression - Past Surgical History Surgical History: colectomy - Social History Smoking Status: Never smoker Smokeless Tobacco Status: No Alcohol use: none Drug use: none - Family History Father Living Status: Hx Family Cardiac Disorders: Yes ([place]) Hx Family Neurologic Disorders: Yes (CVA) Mother Living Status: Hx Family Endocrine Disorder: Yes (DM) Internal Medicine - H&P: Meds Aspirin [Lo-Dose Aspirin EC] 81 mg PO DAILY 08/31/16 [History] Calcium Carbonate [Calcium] 600 mg PO DAILY 08/31/16 [History] Carvedilol [Coreg] 12.5 mg PO BID 08/31/16 [History] Divalproex (24 HR) [Depakote ER (24 HR)] 375 mg PO BID 08/31/16 [History] Donepezil [Aricept] 10 mg PO DAILY 08/31/16 [History] Folic Acid 1 mg PO DAILY 08/31/16 [History] Lisinopril [Zestril] 5 mg PO DAILY 08/31/16 [History] Melatonin/Pyridoxine HCl (B6) [Melatonin 3 mg Tablet] 6 mg PO HS 08/31/16 [History] Polyethylene Glycol 3350 [MiraLAX bowel prep] 17 gm PO DAILY PRN 08/31/16 [History] RisperiDONE [Risperdal] 0.5 mg PO BID 08/31/16 [History] Sertraline [Zoloft] 150 mg PO DAILY 08/31/16 [History] Simvastatin [Zocor] 40 mg PO DAILY 08/31/16 [History] ALPRAZolam [Xanax 0.5 MG Tablet] 0.5 mg PO BID 10/17/18 [History] Acetaminophen [Tylenol] 1,000 mg PO ONCE 10/17/18 [History] Diclofenac Sodium [Voltaren] 1 appl TP QID 10/17/18 [History] Allergy/AdvReac Type Severity Reaction Status Date / Time No Known Allergies Allergy Verified 01/14/17 01:40 All Systems PM: A 10-system review of systems was performed and is negative for pertinent findings except as documented above in the HPI. - Constitutional Vitals: Temp Pulse Resp BP Pulse Ox 98.7 F 58 16 146/48 95 10/17/18 09:21 10/17/18 09:21 10/17/18 09:21 10/17/18 09:21 10/17/18 09:21 Exam: General: Patient is alert, oriented, no acute distress, Head: atraumatic, normocephalic, Eye: normal appearance, PERRL, no scleral icterus, no conjunctival injection ENT: mucous membranes moist, normal external ear exam Neck: normal inspection, trachea midline, full ROM, no carotid bruits Chest: normal inspection, symmetric chest rise Respiratory: Good respiratory effort. Bilateral breath sounds are clear without wheezing, crackles, or rhonchi. Cardiovascular: Regular rate and rhythm. s1 and s2 No clicks, rubs, gallops, or murmors. Abdomen: Bowel sounds present normoactive x-4 quadrants. Abdomen is soft, nondistended. no Epigastric tenderness. No guarding or rebound. No organomegaly noted, obese musculoskeletal: Spontaneously moving all extremities. no edema, no calf tenderness Skin: warm, dry, intact. Neuro: Alert and oriented x4. Sensation light touch intact. Cranial nerves 2- 12 is intact ( has an old facial droop on the left) Not aphasic, rapid hand movements intact, Psych: Patient's affect is normal Internal Med - H&P Results - Labs CBC & Chem 7: 10/17/18 09:40 10/17/18 09:40 Labs: Short CBC 10/17/18 Range/Units 09:40 WBC 6.7 (4.3-11.1) K/mcL Hgb 12.0 (11.5-15.4) g/dL Hct 37.7 (35.3-44.9) % Plt Count 212 (140-400) K/mcL Neutrophils # 4.7 (1.6-8.9) K/mcL BMP 10/17/18 09:40 Sodium 142 Potassium 3.7 Chloride 105 Carbon Dioxide 27 BUN 18 Creatinine 0.99 Glucose 90 Calcium 9.1 Cardiac Enzymes 10/17/18 Range/Units 09:40 Troponin I < 0.03 (< 0.04) ng/mL Urine 10/17/18 Range/Units 11:20 Urine Color Yellow (Yellow) Urine Clarity Cloudy A (Clear) Urine pH 7.0 (5.0-8.0) pH Units Ur Specific [place] 1.010 (1.010-1.025) Urine Protein Negative (Neg-Trace) mg/dL Urine Glucose (UA) Normal (Normal) mg/dL - EKG Data -: EKG Interpreted by Myself EKG shows normal: sinus rhythm - EKG Data Prior EKG available for review: yes When compared to previous EKG: there is no significant change - Impressions ITS Impressions Abdomen/Pelvis CT 10/17/18 09:32 IMPRESSION: 1. Bilateral renal cysts largest 2.8 cm in the left lobe. 2. No acute infective or inflammatory process. 3. Old L2 compression fracture of about 50% decrease in height. D/ / Silviano Rabago MD / Silviano Rabago MD Interpreting Provider: Silviano Rabago MD Head CT 10/17/18 09:33 IMPRESSION: 1. Cerebral atrophy and chronic small vessel ischemic changes plus old lacunar infarct right thalamus. 2. Area of cortical/subcortical effacement mid left temporal lobe suggestive of acute infarct. 3. No evidence for acute intracranial hemorrhage. D/ / Silviano Rabago MD / Silviano Rabago MD Interpreting Provider: Silviano Rabago MD - Assessment and Plan (1) Stroke Current Visit: Yes Status: Acute Assessment and plan: acute stroke of the left temporal lobe No TPA as symptoms rapidly improved as per ED physician [facility] was not contacted and [place] neurology was contacted and recommendations were followed Telemetry monitoring Plavix 75 mg daily as she was on aspirin per Dr. Zapata recommendations Lipitor 80 mg daily Neurology consulted by the ED physician Neuro check as per stroke protocol MRA head CTA head and neck inprocess 2D ECHO with bubble study Rehab/ PT Evaluation Speech / swallow evaluation Lipid panel, HbA1C TSH Keep systolic BP <220 and diastolic BP <120 mmHg Maintain LDL less than 75 DVT prophylaxis Fall, aspiration and seizure precautions Qualifiers: CVA mechanism: unspecified Qualified Code(s): I63.9 - Cerebral infarction, unspecified (2) UTI (urinary tract infection) Current Visit: Yes Status: Acute Assessment and plan: Was started on ceftriaxone will continue Follow urine cultures Qualifiers: Urinary tract infection type: acute cystitis Hematuria presence: without hematuria Qualified Code(s): N30.00 - Acute cystitis without hematuria (3) Hypertension Current Visit: Yes Status: Acute Assessment and plan: hold home medications as she has an acute stroke Keep systolic BP <220 and diastolic BP <120 mmHg resume in the AM Qualifiers: Hypertension type: essential hypertension Qualified Code(s): I10 - Essential (primary) hypertension (4) Dementia Current Visit: Yes Status: Acute Assessment and plan: And multiple other site disorders such as kleptomania, hoarding disorder, d epression Continue home medications if not contraindicated Fall, aspiration precautions Qualifiers: Dementia type: unspecified type Dementia behavioral disturbance: without behavioral disturbance Qualified Code(s): F03.90 - Unspecified dementia without behavioral disturbance (5) Obesity (BMI 30.0-34.9) Current Visit: Yes Status: Acute Assessment and plan: nutrition consult (6) DVT prophylaxis Current Visit: Yes Status: Acute Assessment and plan: heparin sc - Time Spent With Patient Total time spent is greater than 50% in coordination of care (as documented) at patient's floor/unit and/or counseling patient:
--- NOTE | 2018-10-17 13:11 | Neurology - Consult Note ---
<Otto Kahn - Last Filed: 10/17/18 13:49> Date of Encounter: 10/17/18 Time of Encounter: 13:08 Assessment and Plan (1) Stroke Current Visit: Yes Status: Acute - As demonstrated on CT scan in the emergency department - Patient reported symptoms of dizziness and syncopal episode but denies any focal neurologic deficits including numbness, tingling, weakness - Currently symptoms have reportedly resolved - Physical exam reveals facial droop on left which patient reports is chronic and baseline. No focal deficits noted - Risk factors include hypertension, hyperlipidemia--no previous lipid panel available - Patient is on home aspirin - CT in the emergency department showed cerebral atrophy and chronic small vessel ischemic changes and old infarct as well as a mid left temporal lesion suggestive of acute infarct - In the emergency department CTA of the head and neck was obtained and showed no critical stenosis of internal carotid for posterior circulation as well as no intracranial stenosis --Given the patient's symptoms started just prior to arrival, it would be less likely that an acute stroke which show up on a CT scan this early. Alternative etiologies for syncopal episode should be pursued and ruled out. Additionally, the location of the left temporal would not explain these symptoms in a classic scenario. Plan - Neuro checks every 4 hours - We will obtain MRI of the head - We will switch aspirin to Plavix for future prophylaxis - Started on atorvastatin 80 mg - Agree with lipid panel, A1c, echocardiogram - Allow for permissive hypertension - PT/OT have been consulted as well as speech therapy Qualifiers: CVA mechanism: unspecified Qualified Code(s): I63.9 - Cerebral infarction, unspecified (2) Hyperlipidemia Current Visit: Yes Status: Chronic As above Qualifiers: Hyperlipidemia type: unspecified Qualified Code(s): E78.5 - Hyperlipidemia, unspecified (3) Hypertension Current Visit: Yes Status: Chronic - Most recently well-controlled at 119/92 - Recommend holding antihypertensives in the setting of acute stroke - Continue monitor with permissive hypertension. Qualifiers: Hypertension type: essential hypertension Qualified Code(s): I10 - Essential (primary) hypertension (4) Syncope Current Visit: Yes Status: Acute - Very possibly indicative of a neurogenic syncope secondary to stroke - No evidence of stenosis based on CTA of the head and neck - Alternative etiologies however should be ruled out including infectious, orthostasis - MRI of the brain ordered and pending, echocardiogram pending Qualifiers: Syncope type: unspecified Qualified Code(s): R55 - Syncope and collapse (5) Dementia Current Visit: Yes Status: Chronic - Suspected due to patient's medication list including donepezil - Unclear baseline, however suspect that patient is at baseline - Continue home medications Qualifiers: Dementia type: unspecified type Dementia behavioral disturbance: without behavioral disturbance Qualified Code(s): F03.90 - Unspecified dementia without behavioral disturbance History of Present Illness Chief complaint: Syncopal episode HPI: Ms. Graham is a 73 year old female with past medical history of CAD, CVA, dementia, hyperlipidemia, hypertension presented to the emergency department with concern for syncopal episode. Patient states that she experienced one episode of dizziness with subsequent loss of consciousness this morning. She does state that she remembers events both prior and immediately after the syncopal episode. She states that she did have prodromal symptoms including dizziness where she fell sideways out of her chair at a long-term care facility. She does admit to loss of consciousness but does not think she hit her head. She believes she was unconscious for approximately 2 hours however ED reports 2- 3 minutes. She denies any further symptoms including fevers, chills, nausea, vomiting, chest pain, shortness of breath, numbness, tingling, weakness. She has never experienced this in the past. She has no concerns at this time except for not being able to eat. She has not noticed any vision changes, slurred speech, confusion, loss of bowel or bladder. In the emergency department, vital signs are significant for heart rate of 58, blood pressure 146/48. She is tolerating 95% oxygen on room air. Laboratory results were obtained and were unremarkable except for contaminated urine s ample. Patient reportedly was also complaining of nausea in the ED so abdomen and pelvis CT was obtained and showed bilateral renal cysts measuring largest 2.8 cm otherwise no acute process. CT of the head was also obtained and was significant for cerebral atrophy and chronic small vessel ischemic changes plus old lacunar infarct in the right thalamus. It also showed an area of cortical/subcortical effacement in mid left temporal lobe suggestive of acute infarct. CTA of the head and neck was also obtained and showed mild less than 50% stenosis of the internal carotid arteries and no intracranial stenosis. Neurology was consulted for concerns for acute stroke. During my examination, patient states that she is currently asymptomatic and her only concern is being able to eat. She continues to deny any symptoms of focal deficits, numbness, tingling, weakness. Past Med Surg Social Fam HX - Past Medical History Medical history: coronary artery disease, CVA, dementia, hyperlipidemia, hypertension, myocardial infarction, osteoporosis, renal disease, TIA Additional medical history: UTI, Psychiatric history: depression - Past Surgical History Surgical History: colectomy - Social History Smoking Status: Never smoker Smokeless Tobacco Status: No Alcohol use: none Drug use: none - Family History Father Living Status: Hx Family Cardiac Disorders: Yes ([place]) Hx Family Neurologic Disorders: Yes (CVA) Mother Living Status: Hx Family Endocrine Disorder: Yes (DM) Medications and Allergies Aspirin [Lo-Dose Aspirin EC] 81 mg PO DAILY 08/31/16 [History] Carvedilol [Coreg] 12.5 mg PO BID 08/31/16 [History] Donepezil [Aricept] 10 mg PO DAILY 08/31/16 [History] Folic Acid 1 mg PO DAILY 08/31/16 [History] Lisinopril [Zestril] 5 mg PO DAILY 08/31/16 [History] Melatonin/Pyridoxine HCl (B6) [Melatonin 3 mg Tablet] 6 mg PO HS 08/31/16 [History] RisperiDONE [Risperdal] 0.25 mg PO BID 08/31/16 [History] Sertraline [Zoloft] 150 mg PO DAILY 08/31/16 [History] Simvastatin [Zocor] 40 mg PO HS 08/31/16 [History] ALPRAZolam [Xanax 0.5 MG Tablet] 0.5 mg PO BID PRN 10/17/18 [History] Acetaminophen [Non-Aspirin] 650 mg PO Q4H PRN 10/17/18 [History] Calcium Carbonate/Vitamin D3 [Calcium 600-Vit D3 800 Tablet] 1 each PO DAILY 10/17/18 [History] Diclofenac Sodium [Voltaren] 1 appl TP QID PRN 10/17/18 [History] Divalproex Sodium [Depakote Sprinkle] 375 mg PO BID 10/17/18 [History] Loperamide [Imodium] 2 mg PO QID PRN 10/17/18 [History] Loratadine [Allergy Relief] 10 mg PO DAILY 10/17/18 [History] Metoclopramide [Reglan] 5 mg PO QID PRN 10/17/18 [History] Polyethylene Glycol 3350 [MiraLAX] 17 gm PO DAILY PRN 10/17/18 [History] Allergy/AdvReac Type Severity Reaction Status Date / Time No Known Allergies Allergy Verified 01/14/17 01:40 All Systems: The remainder of the systems were reviewed and are negative Review of Systems: - Constitutional: Denies fevers, chills, weight loss, generalized fatigue - Head/Neck: Denies BRIDGES, neck stiffness - EENT: Denies vision changes/blurriness, tinnitus, slurred speech - CVS: Denies chest pain, palpitations, NELSON, orthopnea, edema - Pulm: Denies SOB, cough, sputum, wheezing - GI: Denies abdominal pain, anorexia, nausea, vomiting, diarrhea, constipation, melena - MSK: Denies joint pain, limited ROM - Skin: Denies rashes, ulcers, color changes, - Neuro: Denies BRIDGES, paresthesias, focal deficits, ataxia, vision changes, numbness, tingling. Physical Examination - Vital Signs Vital Signs: Initial Vital Signs Temp Pulse Resp BP Pulse Ox 98.7 F 58 16 146/48 95 10/17/18 09:21 10/17/18 09:21 10/17/18 09:21 10/17/18 09:21 10/17/18 09:21 - Constitutional General appearance: comfortable - Neurologic Sensorimotor examination: intact Detailed motor examination: grossly full strength in all extremities Motor examination - right side: 4/5: deltoids, biceps, triceps, fishing vessel captain, hip flexors, tibialis Anterior, quadriceps, toe extension (EHL), plantarflexion Motor examination - left side: 4/5: deltoids, biceps, triceps, hip flexors, fishing vessel captain, quadriceps, tibialis Anterior, toe extension (EHL), plantarflexion Detailed sensory examination: intact Reflexes: Biceps: 2+, Patella: 2+ Mental Status Examination: awake, alert, oriented to person, oriented to place, oriented to time, follows commands appropriately, answers questions appropriately, no aphasia, not reliable historian Cranial nerve examination: PERRL, EOMI, sensory to face intact, no facial asymmetry is present, no dysarthria (Possible mild however this may be chronic secondary to dentition), hearing is intact symmetrically, soft palate elevates bilaterally upon phonation, tongue protrudes midline, no atrophy or facial fasiculations present Cranial Nerve Exam: facial droop: Left (Reports chronic) Cerebellar examination: no dysmetria, performs finger to nose and heel to friedman symmetrically without ataxia Results - Laboratory Findings CBC and BMP: 10/17/18 09:40 10/17/18 09:40 Abnormal lab findings: Abnormal lab results Est GFR (Non-Af Amer) 55 (> 60) L 10/17/18 09:40 Cloudy (Clear) A 10/17/18 11:20 Small (Negative) H 10/17/18 11:20 Positive (Negative) A 10/17/18 11:20 Ur Leukocyte Esterase Moderate (Negative) H 10/17/18 11:20 15-30 per hpf (0-3) H 10/17/18 11:20 Ur Squamous Epith Cells Many per lpf (None-Few) H 10/17/18 11:20 Many per hpf (None-Few) H 10/17/18 11:20 Consult Discharge Plan - Plan Referrals: Iglesia Diop MD [Primary Care Provider] - <Coleman Zapata - Last Filed: 10/17/18 17:54> Date of Encounter: 10/17/18 Assessment and Plan (1) Syncope Current Visit: Yes Status: Acute Chart was reviewed, the patient was seen and examined independently. A [id number] assessment was performed including neurologic history and examination. The case was discussed with the neurology resident on service. I am concerned about the possibility of migraine headache because she does have a prior history of migraines. We must also rule out the possibility of vertebral basilar insufficiency, or infarction involving the posterior fossa particularly cerebellum. She is nauseated, I favor migraine in this instance because she has a prior history of migraine and she has a normal neurologic exam. I see no oph thalmoplegia, or nystagmus. MRI scan of the brain will be done tonight. Will call later to check on the results. Patient is currently stable awake and alert. Qualifiers: Syncope type: unspecified Qualified Code(s): R55 - Syncope and collapse History of Present Illness HPI: The chart was reviewed, patient was seen and examined independently. The case was discussed with the neurology resident on service. I did review the CT scans of the head as well as the CTA of the head and neck independently.I have personally performed a [id number] assessment of the patient and have reviewed the neurology resident's note. My impressions are as follows: I am concerned that we are either dealing with a migraine headache, or perhaps a posterior fossa infarct. Her neurologic examination is essentially normal without any focal or lateralized deficits. However cerebellar infarcts may not have focal deficits. She does have a prior history of migraine headache and states that it is possible that this headache to be a migraine. She is not encephalopathic or lethargic. She is also experiencing significant nausea with emesis. She admits experiencing migraine headaches when she was young however her last migraine was about a year or so ago. CTA of the head and neck were negative for any evidence of occlusion or aneurysm or dissection. All Systems: The remainder of the systems were reviewed and are negative Review of Systems: The balance of the systems review is negative. Physical Examination - Vital Signs Vital Signs: Initial Vital Signs Temp Pulse Resp BP Pulse Ox 98.7 F 58 16 146/48 95 10/17/18 09:21 10/17/18 09:21 10/17/18 09:21 10/17/18 09:21 10/17/18 09:21 - Exam Exam: General Examination: *CONSTITUTIONAL: normal *GENERAL APPEARANCE OF PATIENT appears healthy and well groomed *EYES: pupils equal, round, reactive to light and accommodation, conjunctiva clear without masses or ulcerations, fundi normal. *CARDIOVASCULAR no peripheral edema, distal temperature normal, dorsalis pedis pulses normal. Refer to vital signs Musculoskeletal: *GAIT AND STATION normal, with normal Romberg testing, no abnormalities such as broad base gait or spasticity *ASSESSMENT OF MUSCLE STRENGTH IN THE UPPER AND LOWER EXTREMITIES deltoid, bicep, tricep, fishing vessel captain strength, hip flexors ,anterior tibialis, dorsoflexion of the foot normal. *MUSCLE TONE IN THE UPPER AND LOWER EXTREMITIES normal. No abnormal movements, fasciculations or atrophy identified. Neurological: *ORIENTATION to time and place *RECURRENT AND REMOTE MEMORY intact *ATTENTION AND CONCENTRATION are normal *LANGUAGE FUNCTION no significant aphasia or dysarthia was noted. *FUND OF KNOWLEDGE aware of current events, past history, vocabulary *MENTAL attention span and concentration normal. *CN II optic fundi were normal, no papilledema noted. *CN III,IV, PERRLA extraocular eye movements were full, no nystagmus and no ptosis noted. *CN V shows normal sensation and jaw opens symmetrically. *CN VII shows normal facial movement symmetrically, upper and lower bilaterally. *CN VIII shows no significant hearing loss on examination in the office. *CN IX,,X palate elevated symmetrically and normal gag reflex was noted. *CN XI normal strength in the sternocleidomastoid muscles, symmetrical shoulder shrugging. *CN XII tongue protruded in the midline, with normal strength and movement. *SENSORY EXAMINATION pinprick sensation intact, and light touch(vibration sense). *REFLEXES: deep tendon reflexes were normal and symmetrical , grade 2/4 diffusely, no pathological reflexes were noted. *CEREBELLAR TESTING normal finger to nose, heel/knee/friedman, and tandem walk. *PAIN LEVEL Results - Laboratory Findings CBC and BMP: 10/17/18 09:40 10/17/18 09:40 Abnormal lab findings: Abnormal lab results PT 12.7 Seconds (9.4-12.1) H 10/17/18 09:40 Est GFR (Non-Af Amer) 55 (> 60) L 10/17/18 09:40 Cloudy (Clear) A 10/17/18 11:20 Small (Negative) H 10/17/18 11:20 Positive (Negative) A 10/17/18 11:20 Ur Leukocyte Esterase Moderate (Negative) H 10/17/18 11:20 15-30 per hpf (0-3) H 10/17/18 11:20 Ur Squamous Epith Cells Many per lpf (None-Few) H 10/17/18 11:20 Many per hpf (None-Few) H 10/17/18 11:20
[2018-10-17 13:32] LABS: INR 1.1; Prothrombin Time 12.7 Seconds (9.4-12.1)
[2018-10-17] MEDS: 0.9 % Sodium Chloride 1,000 ML IVC SCH (14:06)
[2018-10-17] MEDS ORDERED: Acetaminophen 325 MG TABLET PO PRN (14:28)
[2018-10-17] MEDS ORDERED: Ondansetron 4 MG/2 ML VIAL IVP ONE (15:58)
[2018-10-17] MEDS: Divalproex Sodium 125 MG CAPSULE PO SCH (21:18)
[2018-10-17] MEDS: ALPRAZolam 0.5 MG TABLET PO SCH (21:18)
[2018-10-17] MEDS: Melatonin 3 MG TABLET PO SCH (21:18)
[2018-10-17] MEDS: risperiDONE 0.25 MG TABLET PO SCH (21:18)
[2018-10-18 05:14] LABS: Basophils % 0.6 %; Eosinophils # 0.1 K/mcL (0.0-0.6); Hematocrit 36.2 % (35.3-44.9); Hemoglobin 11.4 g/dL (11.5-15.4); Immature Granulocytes % 0.2 % (0-4); Lymphocytes # 1.5 K/mcL (0.6-4.6); Lymphocytes % 29.5 %; Mean Corpuscular HGB Conc 31.5 g/dL (31.6-35.5); Mean Corpuscular Hemoglobin 28.4 pg (28.0-33.3); Mean Corpuscular Volume 90.3 fL (83.0-100.0); Mean Platelet Volume 10.9 fL (9.4-12.4); Monocytes # 0.5 K/mcL (0.0-1.3); Monocytes % 9.1 %; Neutrophils # 3.1 K/mcL (1.6-8.9); Platelet Count 188 K/mcL (140-400); Red Blood Count 4.01 M/mcL (3.82-4.97); Red Cell Distribution Width 13.6 % (11.5-14.5); Segmented Neutrophils % 59.6 %
[2018-10-18 05:33] LABS: BUN/Creatinine Ratio 16 (6-26); Blood Urea Nitrogen 14 mg/dL (8-23); Calcium 8.6 mg/dL (8.6-10.3); Carbon Dioxide 26 mEq/L (23-29); Chloride 108 mEq/L (98-107); Chol/HDL Ratio 2.6 (0-4.9); Cholesterol 137 mg/dL (< 200); Glucose 92 mg/dL (70-105); HDL Cholesterol 53 mg/dL (40-59); LDL Cholesterol,Calculated 62 mg/dL (0-99); Osmolality,Calculated 292 (280-300); Phosphorous 3.7 mg/dL (2.7-4.5); Sodium 141 mEq/L (136-145); Triglycerides 112 mg/dL (< 150); eGFR For Non-African Americans > 60 (> 60)
[2018-10-18] MEDS: Divalproex Sodium 125 MG CAPSULE PO SCH ×2 (08:00→20:00)
[2018-10-18] MEDS: Loratadine 10 MG TABLET PO SCH (08:01)
[2018-10-18] MEDS: Folic Acid 1 MG TABLET PO SCH (08:01)
[2018-10-18] MEDS: ALPRAZolam 0.5 MG TABLET PO SCH ×2 (08:01→20:01)
[2018-10-18] MEDS: cefTRIAXone 2,000 MG in Water for inj. (sterile) 20 ML 20 ML IVP SCH (08:02)
[2018-10-18] MEDS: Cholecalciferol (D-3) 1,000 UNIT TABLET PO SCH (08:02)
[2018-10-18] MEDS: risperiDONE 0.25 MG TABLET PO SCH ×2 (08:02→20:01)
--- NOTE | 2018-10-18 10:13 | Internal Med Progress Note ---
Hospitalist Progress Note - Encounter Date of Encounter: 10/18/18 Time of Encounter: 10:08 - Subjective Interval History: Patient is seen and examined in the room, she is very pleasant this morning, and eager to go home. She denies any syncope episode overnight. She has no chest pain, shortness breath, or palpitation. No weakness, headache, or numbness. - Exam Vitals: Temp Pulse Resp BP Pulse Ox 98.3 F 78 16 186/78 100 10/18/18 07:20 10/18/18 07:20 10/18/18 07:20 10/18/18 07:20 10/18/18 07:20 Exam: General: Patient is alert, oriented, no acute distress, Head: atraumatic, normocephalic, Eye: normal appearance, PERRL, no scleral icterus, no conjunctival injection ENT: mucous membranes moist, normal external ear exam Neck: normal inspection, trachea midline, full ROM, no carotid bruits Chest: normal inspection, symmetric chest rise Respiratory: Good respiratory effort. Bilateral breath sounds are clear without wheezing, crackles, or rhonchi. Cardiovascular: Regular rate and rhythm. s1 and s2 No clicks, rubs, gallops, or murmors. Abdomen: Bowel sounds present normoactive x-4 quadrants. Abdomen is soft, nondistended. no Epigastric tenderness. No guarding or rebound. No organomegaly noted, obese musculoskeletal: Spontaneously moving all extremities. no edema, no calf tenderness Skin: warm, dry, intact. Neuro: Alert and oriented x4. Sensation light touch intact. Cranial nerves 2- 12 is intact ( has an old facial droop on the left) Not aphasic, rapid hand movements intact, Psych: Patient's affect is normal - Assessment and Plan (1) Stroke Current Visit: Yes Status: Ruled-out Assessment and Plan: 10/17 acute stroke of the left temporal lobe No TPA as symptoms rapidly improved as per ED physician [facility] was not contacted and [place] [facility] was contacted and recommendations were followed Telemetry monitoring Plavix 75 mg daily as she was on aspirin per Dr. Zapata recommendations Lipitor 80 mg daily Neurology consulted by the ED physician Neuro check as per stroke protocol MRA head CTA head and neck inprocess 2D ECHO with bubble study Rehab/ PT Evaluation Speech / swallow evaluation Lipid panel, HbA1C TSH Keep systolic BP <220 and diastolic BP <120 mmHg Maintain LDL less than 75 DVT prophylaxis Fall, aspiration and seizure precautions. 10/18 MRI of brain showed no acute stroke. CTA of head and neck has no significant arterial stenosis. Orthostatic vital signs was negative. Labs showed borderline low vitamin B12 12 level, doubt this has anything to do the syncopal episode. EKG and telemetry monitoring has no malignant arrhythmia detected so far. Pending echocardiogram. Based on the history, it is likely a vasovagal episode. Neurology following, appreciate help. (2) UTI (urinary tract infection) Current Visit: Yes Status: Acute Assessment and Plan: Continue ceftriaxone. Follow urine cultures (3) Obesity (BMI 30.0-34.9) Current Visit: No Status: Chronic Assessment and Plan: nutrition consult (4) Dementia Current Visit: No Status: Chronic Assessment and Plan: Continue home medication. Fall, aspiration precautions (5) Hypertension Current Visit: No Status: Chronic Assessment and Plan: Resume home medication, continue monitoring BP. (6) DVT prophylaxis Current Visit: Yes Status: Acute Assessment and Plan: heparin sc - Time Spent with Patient Total time spent is greater than 50% in coordination of care (as documented) at patient's floor/unit and/or counseling patient: Greater than 35 minutes Plan of Care Discussed with: patient Internal Medicine: Result - Labs CBC & Chem 7: 10/18/18 04:39 10/18/18 04:39 Labs: Short CBC 10/17/18 10/18/18 Range/Units 09:40 04:39 WBC 6.7 5.2 (4.3-11.1) K/mcL Hgb 12.0 11.4 L (11.5-15.4) g/dL Hct 37.7 36.2 (35.3-44.9) % Plt Count 212 188 (140-400) K/mcL Neutrophils # 4.7 3.1 (1.6-8.9) K/mcL BMP 10/17/18 10/18/18 09:40 04:39 Sodium 142 141 Potassium 3.7 4.0 Chloride 105 108 H Carbon Dioxide 27 26 BUN 18 14 Creatinine 0.99 0.87 Glucose 90 92 Calcium 9.1 8.6 Cardiac Enzymes 10/17/18 Range/Units 09:40 Troponin I < 0.03 (< 0.04) ng/mL Urine 10/17/18 Range/Units 11:20 Urine Color Yellow (Yellow) Urine Clarity Cloudy A (Clear) Urine pH 7.0 (5.0-8.0) pH Units Ur Specific [place] 1.010 (1.010-1.025) Urine Protein Negative (Neg-Trace) mg/dL Urine Glucose (UA) Normal (Normal) mg/dL - ABG Interpretation ABG results: PT/INR, D-dimer PT 12.7 Seconds (9.4-12.1) H 10/17/18 09:40 - Impressions Impressions Abdomen/Pelvis CT 10/17/18 09:32 IMPRESSION: 1. Bilateral renal cysts largest 2.8 cm in the left lobe. 2. No acute infective or inflammatory process. 3. Old L2 compression fracture of about 50% decrease in height. D/ / Silviano Rabago MD / Silviano Rabago MD Interpreting Provider: Silviano Rabago MD Head CT 10/17/18 09:33 IMPRESSION: 1. Cerebral atrophy and chronic small vessel ischemic changes plus old lacunar infarct right thalamus. 2. Area of cortical/subcortical effacement mid left temporal lobe suggestive of acute infarct. 3. No evidence for acute intracranial hemorrhage. D/ / Silviano Rabago MD / Silviano Rabago MD Interpreting Provider: Silviano Rabago MD Head CTA 10/17/18 11:22 IMPRESSION: Mild, less than 50%, stenosis of the internal carotid arteries by NASCET criteria. No intracranial flow-limiting stenosis. D/ / 10/17/2018 12:56:06 Roger Lopez MD / ирина Interpreting Provider: Roger Lopez MD Neck CTA 10/17/18 11:22 IMPRESSION: Mild, less than 50%, stenosis of the internal carotid arteries by NASCET criteria. No intracranial flow-limiting stenosis. D/ / 10/17/2018 12:56:06 Roger Lopez MD / ирина Interpreting Provider: Roger Lopez MD Brain MRI 10/17/18 12:08 IMPRESSION: No acute infarct. Evidence chronic infarcts and chronic hypertensive microbleeds. D/ / Fly Antonio MD / Fly Antonio MD Interpreting Provider: Fly Antonio MD Consult Discharge Plan - Plan Referrals: Iglesia Diop MD [Primary Care Provider] - __ (1) Stroke Qualifiers: CVA mechanism: unspecified Qualified Code(s): I63.9 - Cerebral infarction, unspecified (2) UTI (urinary tract infection) Qualifiers: Urinary tract infection type: acute cystitis Hematuria presence: without hematuria Qualified Code(s): N30.00 - Acute cystitis without hematuria (4) Dementia Qualifiers: Dementia type: unspecified type Dementia behavioral disturbance: without behavioral disturbance Qualified Code(s): F03.90 - Unspecified dementia without behavioral disturbance (5) Hypertension Qualifiers: Hypertension type: essential hypertension Qualified Code(s): I10 - Essential (primary) hypertension
[2018-10-18] MEDS: 0.9 % Sodium Chloride 1,000 ML IVC SCH (11:30)
--- NOTE | 2018-10-18 12:39 | Neurology Progress Note ---
Date of Encounter: 10/18/18 Time of Encounter: 12:37 Assessment and Plan (1) Syncope Current Visit: Yes Status: Acute Qualifiers: Syncope type: unspecified Qualified Code(s): R55 - Syncope and collapse (2) Migraine headache without aura Current Visit: Yes Status: Acute Ultimately I believe the patient had experienced a severe migraine headache. She does have a history of migraine headaches, she reports having had a severe headache yesterday with associated nausea. Perhaps dry heaves resulted in a syncopal episode. In regard she is back to her normal baseline status. Workup was negative. From a neurologic perspective she may be discharged home. I will reevaluate her your request. Today's visit lasted for 20 minutes with greater than 50% of that time being spent in [id number] contact which consisted of counseling and coordinating care. Qualifiers: Status migrainosus presence: without status migrainosus Intractability: not intractable Qualified Code(s): G43.009 - Migraine without aura, not intractable, without status migrainosus Subjective Interval history: Chart was reviewed, patient was seen and examined. She is now back to her normal baseline. She is awake and alert and currently working on a word search puzzles loss laying in the bed. She denies any headache denies any further nausea. She states that yesterday she did "have a migraine". The MRI scan of the brain was negative for any evidence of an acute infarct. CTA scans were negative for any evidence of cranial or cervical stenosis or occlusion. No evidence of intracranial aneurysm present. Patient now wishing to go home. She resides in a assisted in [place]. Objective - Constitutional Vitals: Temp Pulse Resp BP Pulse Ox 97.9 F 74 16 118/65 100 10/18/18 11:30 10/18/18 11:30 10/18/18 11:30 10/18/18 11:30 10/18/18 11:30 Exam: Exam: General Examination: *CONSTITUTIONAL: normal *GENERAL APPEARANCE OF PATIENT appears healthy and well groomed *EYES: pupils equal, round, reactive to light and accommodation, conjunctiva clear without masses or ulcerations, fundi normal. *CARDIOVASCULAR no peripheral edema, distal temperature normal, dorsalis pedis pulses normal. Refer to vital signs Musculoskeletal: *GAIT AND STATION normal, with normal Romberg testing, no abnormalities such as broad base gait or spasticity *ASSESSMENT OF MUSCLE STRENGTH IN THE UPPER AND LOWER EXTREMITIES deltoid, bicep, tricep, dance hall host/hostess strength, hip flexors ,anterior tibialis, dorsoflexion of the foot normal. *MUSCLE TONE IN THE UPPER AND LOWER EXTREMITIES normal. No abnormal movements, fasciculations or atrophy identified. Neurological: *ORIENTATION to she is oriented to person and place, she knows she is in the hospital, he follows simple commands and answers simple questions appropriately. She could not tell me the day of the week however. *RECURRENT AND REMOTE MEMORY suspect patient may have mild or early dementia. *ATTENTION AND CONCENTRATION are normal *LANGUAGE FUNCTION no significant aphasia or dysarthia was noted. *FUND OF KNOWLEDGE aware of current events, past history, vocabulary *MENTAL attention span and concentration normal. *CN II optic fundi were normal, no papilledema noted. *CN III,IV, PERRLA extraocular eye movements were full, no nystagmus and no ptosis noted. *CN V shows normal sensation and jaw opens symmetrically. *CN VII shows normal facial movement symmetrically, upper and lower bilaterally. *CN VIII shows no significant hearing loss on examination in the office. *CN IX,,X palate elevated symmetrically and normal gag reflex was noted. *CN XI normal strength in the sternocleidomastoid muscles, symmetrical shoulder shrugging. *CN XII tongue protruded in the midline, with normal strength and movement. *SENSORY EXAMINATION pinprick sensation intact, and light touch(vibration sense). *REFLEXES: deep tendon reflexes were normal and symmetrical , grade 2/4 diffusely, no pathological reflexes were noted. *CEREBELLAR TESTING normal finger to nose, heel/knee/friedman, and tandem walk. *PAIN LEVEL - Neurological Exam Sensorimotor examination: Present: intact Motor Examination: Present: grossly full strength in all extremities Motor examination - left side: 4/5: deltoids, biceps, triceps, hip flexors, dance hall host/hostess, quadriceps, tibialis Anterior, toe extension (EHL), plantarflexion Sensation intact: Present: intact Mental Status Examination: Present: awake, alert, oriented to person, oriented to place, oriented to time, follows commands appropriately, answers questions appropriately, no aphasia, not reliable historian Cranial nerve examination: Present: PERRL, EOMI, sensory to face intact, no facial asymmetry is present, no dysarthria (Possible mild however this may be chronic secondary to dentition), hearing is intact symmetrically, soft palate elevates bilaterally upon phonation, tongue protrudes midline, no atrophy or facial fasiculations present Cranial Nerve Exam: facial droop: Left (Reports chronic) Cerebellar examination: Present: no dysmetria, performs finger to nose and heel to friedman symmetrically without ataxia Results - Laboratory Findings CBC and BMP: 10/18/18 04:39 10/18/18 04:39 Abnormal lab findings: Abnormal lab results Hgb 11.4 g/dL (11.5-15.4) L 10/18/18 04:39 MCHC 31.5 g/dL (31.6-35.5) L 10/18/18 04:39 PT 12.7 Seconds (9.4-12.1) H 10/17/18 09:40 Chloride 108 mEq/L (98-107) H 10/18/18 04:39 Est GFR (Non-Af Amer) 55 (> 60) L 10/17/18 09:40 Cloudy (Clear) A 10/17/18 11:20 Small (Negative) H 10/17/18 11:20 Positive (Negative) A 10/17/18 11:20 Ur Leukocyte Esterase Moderate (Negative) H 10/17/18 11:20 15-30 per hpf (0-3) H 10/17/18 11:20 Ur Squamous Epith Cells Many per lpf (None-Few) H 10/17/18 11:20 Many per hpf (None-Few) H 10/17/18 11:20 Consult Discharge Plan - Plan Referrals: Iglesia Diop MD [Primary Care Provider] -
[2018-10-18] MEDS: Melatonin 3 MG TABLET PO SCH (20:00)
[2018-10-19 06:51] VITALS: BP 165/74
[2018-10-19] MEDS: cefTRIAXone 2,000 MG in Water for inj. (sterile) 20 ML 20 ML IVP SCH ×2 (08:10→08:24)
[2018-10-19] MEDS: Loratadine 10 MG TABLET PO SCH (08:11)
[2018-10-19] MEDS: risperiDONE 0.25 MG TABLET PO SCH (08:11)
[2018-10-19] MEDS: ALPRAZolam 0.5 MG TABLET PO SCH (08:11)
[2018-10-19] MEDS: Cholecalciferol (D-3) 1,000 UNIT TABLET PO SCH (08:11)
[2018-10-19] MEDS: Folic Acid 1 MG TABLET PO SCH (08:11)
[2018-10-19] MEDS: Divalproex Sodium 125 MG CAPSULE PO SCH (08:12)
--- NOTE | 2018-10-19 10:02 | Discharge Summary ---
- NOTES TO OUTPATIENT PROVIDER Notes to Outpatient Provider: f/u with PCP within 2 weeks. Orders not resulted at time of discharge: Pending orders 10/17/18 12:20 Bedside Swallowing Evaluation [EVAL] Stat 10/18/18 06:00 ECG 12 lead ECG [ECG] AM 0600 Date of Encounter: 10/19/18 Time of Encounter: 10:04 - Discharge Diagnosis (1) Syncope Priority: Primary Status: Acute Qualifiers: Syncope type: unspecified Qualified Code(s): R55 - Syncope and collapse (2) Stroke Priority: Primary Status: Ruled-out Qualifiers: CVA mechanism: unspecified Qualified Code(s): I63.9 - Cerebral infarction, unspecified (3) UTI (urinary tract infection) Priority: Primary Status: Acute Qualifiers: Urinary tract infection type: acute cystitis Hematuria presence: without hematuria Qualified Code(s): N30.00 - Acute cystitis without hematuria (4) Obesity (BMI 30.0-34.9) Priority: Secondary Status: Chronic (5) Dementia Priority: Secondary Status: Chronic Qualifiers: Dementia type: unspecified type Dementia behavioral disturbance: without behavioral disturbance Qualified Code(s): F03.90 - Unspecified dementia without behavioral disturbance (6) Hypertension Priority: Secondary Status: Chronic Qualifiers: Hypertension type: essential hypertension Qualified Code(s): I10 - Essential (primary) hypertension (7) DVT prophylaxis Priority: Primary Status: Acute Hospital course: Ms. Graham is a 73 year old female coronary artery disease, CVA, dementia, hyperlipidemia, hypertension since the emergency department with syncopal episode. Patient is a poor historian so history is extremely limited. Patient denies ever having an unresponsive episode and reports that she ate eggs and toast for breakfast and immediately started vomiting. She denies numbness or weakness of any of her extremities, she denies any facial drooping, denies lites of function of her extremities. She does report urinary frequency however denies dysuria or burning. No recent head trauma, denies palpitations, chest pa in, shortness of breath, leg swelling, seizure history, recent falls, Most of the history is obtained from the ED physician. As per ED physician reportedly she was unresponsive for approximately 2-3 minutes. While in the emergency department she had complained of nausea and lightheadedness so CT abdomen and pelvis was performed without any acute findings. While in the emergency department CT head was reported to have acute stroke. However, MRI of brain showed no acute stroke. CTA of head and neck has no significant arterial stenosis. Orthostatic vital signs was negative. EKG and telemetry monitoring has no malignant arrhythmia detected. Echocardiogram was unremarkable. UA showed a possible UTI, patient received IV Rocephin, urinary symptoms have improved. On the discharge today, patient was alert and oriented, she denies further syncopal episode. her vital signs were stable, labs were unremarkable. she is discharged back to [facility], was instructed to continue oral antibiotics for several more days, follow-up with PCP as scheduled.. Discharge discussed with: patient Time spent discussing smoking cessation with patient: more than 10 minutes - Time Spent with Patient Total time spent providing and/or coordinating discharge services: Time spent: Greater than 30 minutes - Discharge Medications Prescriptions: New Cephalexin [Keflex] 500 mg PO QID #28 capsule Continued Simvastatin [Zocor] 40 mg PO HS Sertraline [Zoloft] 150 mg PO DAILY Lisinopril [Zestril] 5 mg PO DAILY Carvedilol [Coreg] 12.5 mg PO BID Folic Acid 1 mg PO DAILY RisperiDONE [Risperdal] 0.25 mg PO BID Melatonin/Pyridoxine HCl (B6) [Melatonin 3 mg Tablet] 6 mg PO HS Donepezil [Aricept] 10 mg PO DAILY Aspirin [Lo-Dose Aspirin EC] 81 mg PO DAILY Diclofenac Sodium [Voltaren] 1 appl TP QID PRN PRN Reason: KNEE PAIN Divalproex Sodium [Depakote Sprinkle] 375 mg PO BID Acetaminophen [Non-Aspirin] 650 mg PO Q4H PRN PRN Reason: Pain Calcium Carbonate/Vitamin D3 [Calcium 600-Vit D3 800 Tablet] 1 each PO DAILY Loperamide [Imodium] 2 mg PO QID PRN PRN Reason: Diarrhea Loratadine [Allergy Relief] 10 mg PO DAILY Metoclopramide [Reglan] 5 mg PO QID PRN PRN Reason: VOMITTING Polyethylene Glycol 3350 [MiraLAX] 17 gm PO DAILY PRN PRN Reason: Constipation ALPRAZolam [Xanax 0.5 MG Tablet] 0.5 mg PO BID PRN 2 Days #4 tablet PRN Reason: Anxiety Home Medications: Aspirin [Lo-Dose Aspirin EC] 81 mg PO DAILY 08/31/16 [History] Carvedilol [Coreg] 12.5 mg PO BID 08/31/16 [History] Donepezil [Aricept] 10 mg PO DAILY 08/31/16 [History] Folic Acid 1 mg PO DAILY 08/31/16 [History] Lisinopril [Zestril] 5 mg PO DAILY 08/31/16 [History] Melatonin/Pyridoxine HCl (B6) [Melatonin 3 mg Tablet] 6 mg PO HS 08/31/16 [History] RisperiDONE [Risperdal] 0.25 mg PO BID 08/31/16 [History] Sertraline [Zoloft] 150 mg PO DAILY 08/31/16 [History] Simvastatin [Zocor] 40 mg PO HS 08/31/16 [History] Acetaminophen [Non-Aspirin] 650 mg PO Q4H PRN 10/17/18 [History] Calcium Carbonate/Vitamin D3 [Calcium 600-Vit D3 800 Tablet] 1 each PO DAILY 10/17/18 [History] Diclofenac Sodium [Voltaren] 1 appl TP QID PRN 10/17/18 [History] Divalproex Sodium [Depakote Sprinkle] 375 mg PO BID 10/17/18 [History] Loperamide [Imodium] 2 mg PO QID PRN 10/17/18 [History] Loratadine [Allergy Relief] 10 mg PO DAILY 10/17/18 [History] Metoclopramide [Reglan] 5 mg PO QID PRN 10/17/18 [History] Polyethylene Glycol 3350 [MiraLAX] 17 gm PO DAILY PRN 10/17/18 [History] ALPRAZolam [Xanax 0.5 MG Tablet] 0.5 mg PO BID PRN 2 Days #4 tablet 10/19/18 [Rx] Cephalexin [Keflex] 500 mg PO QID #28 capsule 10/19/18 [Rx] Allergies/Adverse Reactions: Allergy/AdvReac Type Severity Reaction Status Date / Time No Known Allergies Allergy Verified 01/14/17 01:40 Date of admission: 10/18/18 12:10 Primary care physician: Iglesia Diop MD Consults: 10/17/18 11:24 Consult to Neurology [CONS] Stat Consulting Provider: Neurology [facility] Reason for Consult: CVA Call Completed: Yes 10/17/18 12:20 Consult to Case Management [CONS] Routine Comment: Consult to Nutrition [CONS] Routine Comment: Consulting Provider: NUTRITION Reason for Dietary Consult: PO Supplementation Consult to Physical Therapy [CONS] Routine Comment: Evaluate, develop and implement POC Reason for Consult: dispostion Does patient have active BEDREST order?: No Is patient medically & hemodynamically stable?: Yes Patient assessed for mobility or mobilized this visit?: Yes OT [Consult to Occupational Therapy] [CONS] Routine Comment: Evaluate, develop and implement POC Reason for Consult: disposition Does patient have active BEDREST order?: No Is patient medically & hemodynamically stable?: Yes Patient assessed for mobility or mobilized this visit?: Yes 10/17/18 14:01 Consult to Powerhouse Attendant [CONS] Routine Reason for SW Consult: PATIENT RECONCILIATION COORDINATOR RESIDENT AT [facility] Anticipated date of discharge: 10/19/18 - Constitutional Vitals: Temp Pulse Resp BP Pulse Ox 98.2 F 77 17 165/74 93 10/19/18 06:49 10/19/18 06:49 10/19/18 06:49 10/19/18 06:49 10/19/18 06:49 General appearance: Present: A&O X 3 Exam: PHYSICAL EXAMINATION: GENERAL APPEARANCE: The patient is alert, oriented and in no acute distress. HEENT: Head is normocephalic. The sinuses are nontender. Pupils are equal and reactive. The nares are patent. Oropharynx clear without lesions. NECK: Supple without lymphadenopathy. HEART: Regular rate and rhythm. LUNGS: No crackles or wheezes are heard. ABDOMEN: Soft, nontender, nondistended with good bowel sounds heard. Inguinal area is normal. EXTREMITIES: Without cyanosis, clubbing or edema. NEUROLOGICAL: Gross nonfocal. SKIN: Warm and dry without any rash. - Patient Status Disposition: Transfer SNF Condition: Good Functional capacity at discharge: wheelchair bound Overall status at discharge: patient is progressing back to baseline - Discharge Instructions Follow Up With: Iglesia Diop MD [Primary Care Provider] - - Diet and Activity Activity: increase activity as tolerated Diet: advance to your usual diet
--- NOTE | 2018-10-19 10:04 | Physician Discharge Referral ---
ExtendedCare Referral Info Provider in Charge after Transfer: Other Institutional Level of Care: Skilled - Diagnosis (1) Stroke Priority: Primary Status: Ruled-out (2) UTI (urinary tract infection) Priority: Primary Status: Acute (3) Obesity (BMI 30.0-34.9) Priority: Secondary Status: Chronic (4) Dementia Priority: Secondary Status: Chronic (5) Hypertension Priority: Secondary Status: Chronic (6) DVT prophylaxis Priority: Primary Status: Acute - Transfer Medications Home Medications: Aspirin [Lo-Dose Aspirin EC] 81 mg PO DAILY 08/31/16 [History] Carvedilol [Coreg] 12.5 mg PO BID 08/31/16 [History] Donepezil [Aricept] 10 mg PO DAILY 08/31/16 [History] Folic Acid 1 mg PO DAILY 08/31/16 [History] Lisinopril [Zestril] 5 mg PO DAILY 08/31/16 [History] Melatonin/Pyridoxine HCl (B6) [Melatonin 3 mg Tablet] 6 mg PO HS 08/31/16 [History] RisperiDONE [Risperdal] 0.25 mg PO BID 08/31/16 [History] Sertraline [Zoloft] 150 mg PO DAILY 08/31/16 [History] Simvastatin [Zocor] 40 mg PO HS 08/31/16 [History] ALPRAZolam [Xanax 0.5 MG Tablet] 0.5 mg PO BID PRN 10/17/18 [History] Acetaminophen [Non-Aspirin] 650 mg PO Q4H PRN 10/17/18 [History] Calcium Carbonate/Vitamin D3 [Calcium 600-Vit D3 800 Tablet] 1 each PO DAILY 10/17/18 [History] Diclofenac Sodium [Voltaren] 1 appl TP QID PRN 10/17/18 [History] Divalproex Sodium [Depakote Sprinkle] 375 mg PO BID 10/17/18 [History] Loperamide [Imodium] 2 mg PO QID PRN 10/17/18 [History] Loratadine [Allergy Relief] 10 mg PO DAILY 10/17/18 [History] Metoclopramide [Reglan] 5 mg PO QID PRN 10/17/18 [History] Polyethylene Glycol 3350 [MiraLAX] 17 gm PO DAILY PRN 10/17/18 [History] Allergies/Adverse Reactions: Allergy/AdvReac Type Severity Reaction Status Date / Time No Known Allergies Allergy Verified 01/14/17 01:40 - Respiratory Orders Smoking Cessation: Smoking cessation has been advised. For more information, call the [place] Tobacco Quit Line at 4-289-LVQQ-NOW. - Advance Directives Code Status: Full Code CERTIFICATION: I certify that the transfer of the above named patient to an Extended Care Facility is necessary for the continuing treatment of the diagnosis listed. The above information is true and accurate reflection of patient's current condition. Confidential - Redisclosure prohibited without a patient's written consent.
--- NOTE | 2018-10-20 13:57 | Electrocardiograph Report ---
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
== END 2018-10-19 11:31 | DRG 312 ==
LOC: 3BNU 09:14 → EMEROOARM 09:14 → 3BNU 13:25
PROVIDERS: ADMIT Internal Medicine; ATTEND Internal Medicine

== ENCOUNTER 2020-04-18 08:33 | Inpatient (IN) ==
[2020-04-18] MEDS ORDERED: cefTRIAXone 1,000 MG in Water for inj. (sterile) 10 ML IVP ONE (08:38)
[2020-04-18] MEDS ORDERED: Azithromycin 500 MG in 0.9 % Sodium Chloride 250 ML IVPB ONE (08:38)
[2020-04-18 09:06] LABS: Basophils % 0.2 %; Hematocrit 43.2 % (35.3-44.9); Hemoglobin 13.5 g/dL (11.5-15.4); Immature Granulocytes % 0.3 % (0-4); Lymphocytes # 0.6 K/mcL (0.6-4.6); Lymphocytes % 10.6 %; Mean Corpuscular HGB Conc 31.3 g/dL (31.6-35.5); Mean Corpuscular Hemoglobin 28.4 pg (28.0-33.3); Mean Corpuscular Volume 90.9 fL (83.0-100.0); Mean Platelet Volume 11.9 fL (9.4-12.4); Monocytes # 0.3 K/mcL (0.0-1.3); Monocytes % 5.6 %; Platelet Count 183 K/mcL (140-400); Red Blood Count 4.75 M/mcL (3.82-4.97); Red Cell Distribution Width 14.4 % (11.5-14.5); Segmented Neutrophils % 83.3 %
[2020-04-18 09:09] LABS: VBG HCO3 26 mEq/L (21-27); VBG PCO2 36 mmHg (41-51); VBG PH 7.46 pH Units (7.32-7.42); VBG PO2 114 mmHg (25-50)
[2020-04-18 09:16] LABS: Activated Partial Thrombo Time 41.2 Seconds (26.0-36.0)
[2020-04-18 09:28] LABS: Prothrombin Time 121.8 Seconds (9.4-12.1)
[2020-04-18 09:29] LABS: INR 11.3
[2020-04-18] MEDS ORDERED: *HR* Phytonadione 5 MG TABLET PO ONE (09:31)
[2020-04-18 09:35] LABS: Albumin 3.6 g/dL (3.5-5.7); Bilirubin,Indirect 0.3 mg/dL (0.0-1.0); Bilirubin,Total 0.3 mg/dL (0.3-1.0); Calcium 8.5 mg/dL (8.6-10.3); Globulin 3.6 g/dL (2.4-3.5); Magnesium 2.6 mg/dL (1.6-2.6); Phosphorous 2.4 mg/dL (2.7-4.5); Potassium 4.1 mEq/L (3.5-5.1); Total Protein 7.2 g/dL (6.4-8.9); Troponin I 0.03 ng/mL (< 0.04)
[2020-04-18] MEDS ORDERED: Dexamethasone 4 MG/ML VIAL IVP STA (09:45)
[2020-04-18] MEDS ORDERED: Ondansetron 4 MG/2 ML VIAL IVP PRN (13:00)
[2020-04-18 14:26] LABS: INR 12.7; Prothrombin Time 136.5 Seconds (9.4-12.1)
[2020-04-18] MEDS: carvediloL 6.25 MG TABLET PO SCH (17:10)
[2020-04-18] MEDS: Divalproex Sodium 125 MG CAPSULE PO SCH (21:28)
[2020-04-18] MEDS: risperiDONE 0.25 MG TABLET PO SCH (21:29)
[2020-04-18] MEDS: Melatonin 3 MG TABLET PO SCH (21:29)
[2020-04-19] MEDS ORDERED: 0.9 % Sodium Chloride 250 ML ONE (00:10)
[2020-04-19] MEDS ORDERED: *HR* Enoxaparin 30 MG/0.3 ML SYRINGE SQ SCH ×2 (06:00)
[2020-04-19 06:01] LABS: INR 1.3; Prothrombin Time 15.4 Seconds (9.4-12.1)
[2020-04-19 06:06] LABS: Hematocrit 40.5 % (35.3-44.9); Hemoglobin 12.5 g/dL (11.5-15.4); Mean Corpuscular HGB Conc 30.9 g/dL (31.6-35.5); Mean Corpuscular Hemoglobin 28.5 pg (28.0-33.3); Mean Corpuscular Volume 92.5 fL (83.0-100.0); Platelet Count 168 K/mcL (140-400); Red Blood Count 4.38 M/mcL (3.82-4.97); Red Cell Distribution Width 14.4 % (11.5-14.5); White Blood Count 6.6 K/mcL (4.3-11.1)
[2020-04-19 06:10] LABS: BUN/Creatinine Ratio 41 (6-26); Blood Urea Nitrogen 35 mg/dL (8-23); Calcium 8.6 mg/dL (8.6-10.3); Carbon Dioxide 26 mEq/L (23-29); Chloride 110 mEq/L (98-107); Glucose 118 mg/dL (70-105); Magnesium 2.7 mg/dL (1.6-2.6); Osmolality,Calculated 309 (280-300); Sodium 145 mEq/L (136-145); eGFR For African Americans > 60 (> 60); eGFR For Non-African Americans > 60 (> 60)
[2020-04-19] MEDS ORDERED: cefTRIAXone 1,000 MG in Water for inj. (sterile) 10 ML IVP SCH (09:00)
[2020-04-19] MEDS: Divalproex Sodium 125 MG CAPSULE PO SCH ×2 (10:05→20:12)
[2020-04-19] MEDS: Aspirin Enteric Coated 81 MG Tablet PO SCH (10:05)
[2020-04-19] MEDS: risperiDONE 0.25 MG TABLET PO SCH ×2 (10:06→20:14)
[2020-04-19] MEDS: carvediloL 6.25 MG TABLET PO SCH ×2 (10:06→17:55)
[2020-04-19] MEDS: *HR* Enoxaparin 40 MG/0.4 ML SYRINGE SQ SCH (17:41)
[2020-04-19] MEDS: carvediloL 25 MG TABLET PO SCH (20:14)
[2020-04-19] MEDS: Acetaminophen 325 MG TABLET PO PRN (20:14)
[2020-04-19] MEDS: ALPRAZolam 0.5 MG TABLET PO SCH (20:14)
[2020-04-19] MEDS: Melatonin 3 MG TABLET PO SCH (20:14)
[2020-04-19] MEDS ORDERED: Melatonin 3 MG TABLET PO SCH (21:00)
[2020-04-20] MEDS: *HR* Enoxaparin 40 MG/0.4 ML SYRINGE SQ SCH (05:18)
[2020-04-20 05:53] LABS: Basophils % 0.4 %; Hematocrit 40.7 % (35.3-44.9); Hemoglobin 12.9 g/dL (11.5-15.4); Immature Granulocytes % 0.8 % (0-4); Lymphocytes # 0.8 K/mcL (0.6-4.6); Lymphocytes % 16.3 %; Mean Corpuscular HGB Conc 31.7 g/dL (31.6-35.5); Mean Corpuscular Hemoglobin 29.7 pg (28.0-33.3); Mean Corpuscular Volume 93.8 fL (83.0-100.0); Mean Platelet Volume 11.6 fL (9.4-12.4); Monocytes # 0.4 K/mcL (0.0-1.3); Monocytes % 8.3 %; Neutrophils # 3.7 K/mcL (1.6-8.9); Platelet Count 179 K/mcL (140-400); Red Blood Count 4.34 M/mcL (3.82-4.97); Red Cell Distribution Width 14.3 % (11.5-14.5); Segmented Neutrophils % 74.2 %
[2020-04-20] MEDS ORDERED: *HR* Enoxaparin 40 MG/0.4 ML SYRINGE SQ SCH (06:00)
[2020-04-20 06:33] LABS: Alanine Aminotransferase 11 Units/L (7-52); Albumin 3.5 g/dL (3.5-5.7); Alkaline Phosphatase 49 Units/L (34-104); Aspartate Amino Transferase 20 Units/L (13-39); BUN/Creatinine Ratio 37 (6-26); Bilirubin,Total 0.3 mg/dL (0.3-1.0); Blood Urea Nitrogen 33 mg/dL (8-23); Calcium 8.5 mg/dL (8.6-10.3); Carbon Dioxide 26 mEq/L (23-29); Chloride 110 mEq/L (98-107); Globulin 3.5 g/dL (2.4-3.5); Glucose 154 mg/dL (70-105); Osmolality,Calculated 312 (280-300); Potassium 3.6 mEq/L (3.5-5.1); Sodium 146 mEq/L (136-145); eGFR For African Americans > 60 (> 60); eGFR For Non-African Americans > 60 (> 60)
[2020-04-20] MEDS: Divalproex Sodium 125 MG CAPSULE PO SCH ×3 (10:25→21:00)
[2020-04-20] MEDS: risperiDONE 0.25 MG TABLET PO SCH (10:25)
[2020-04-20] MEDS: Spironolactone 25 MG TABLET PO SCH (10:25)
[2020-04-20] MEDS: Aspirin Enteric Coated 81 MG Tablet PO SCH (10:25)
[2020-04-20] MEDS: carvediloL 25 MG TABLET PO SCH ×2 (10:25→20:59)
[2020-04-20] MEDS: ALPRAZolam 0.5 MG TABLET PO SCH ×3 (10:25→20:59)
[2020-04-20] MEDS: lisinopriL 5 MG TABLET PO SCH (10:25)
[2020-04-20] MEDS: Furosemide 40 MG/4 ML VIAL IVP SCH (10:26)
[2020-04-20 15:30] LABS: Bacteria,Urine Few per hpf (None-Few); Bilirubin,Urine Negative (Negative); Blood,Urine Small (Negative); Clarity,Urine Clear (Clear); Color,Urine Light-Yellow (Yellow); Glucose,Urine (UA) Normal (Normal); Hyaline Casts,Urine Moderate per lpf (None Seen); Ketones,Urine Negative (Negative); Leukocyte Esterase,Urine Negative (Negative); Mucus,Urine Few per lpf (None-Few); Nitrite,Urine Negative (Negative); PH,Urine 5.5 pH Units (5.0-8.0); Protein,Urine Negative (Neg-Trace); Specific Gravity,Urine 1.013 (1.010-1.025); Squamous Epithelial Cell,Urine Few per hpf (None-Few); Urobilinogen,Urine Normal (Normal); WBC,Urine 0-3 per hpf (0-3)
[2020-04-20] MEDS: Melatonin 3 MG TABLET PO SCH (21:00)
[2020-04-20] MEDS: Acetaminophen 325 MG TABLET PO PRN (21:01)
[2020-04-21] MEDS: *HR* Enoxaparin 40 MG/0.4 ML SYRINGE SQ SCH (05:29)
[2020-04-21] MEDS: Divalproex Sodium 125 MG CAPSULE PO SCH ×3 (07:50→22:29)
[2020-04-21] MEDS: Cholecalciferol (D-3) 1,000 UNIT (25MCG) TABLET PO SCH (07:50)
[2020-04-21] MEDS: Furosemide 40 MG/4 ML VIAL IVP SCH (07:50)
[2020-04-21] MEDS: Ascorbic Acid 500 MG TABLET PO SCH (07:50)
[2020-04-21] MEDS: Spironolactone 25 MG TABLET PO SCH (07:51)
[2020-04-21] MEDS: ALPRAZolam 0.5 MG TABLET PO SCH ×3 (07:51→22:30)
[2020-04-21] MEDS: lisinopriL 5 MG TABLET PO SCH (07:51)
[2020-04-21] MEDS: Aspirin Enteric Coated 81 MG Tablet PO SCH (07:51)
[2020-04-21] MEDS: carvediloL 25 MG TABLET PO SCH ×2 (07:51→22:30)
[2020-04-21 10:22] LABS: Basophils % 0.4 %; Eosinophils % 0.2 %; Hematocrit 44.9 % (35.3-44.9); Hemoglobin 14.2 g/dL (11.5-15.4); Immature Granulocytes % 1.1 % (0-4); Lymphocytes # 0.9 K/mcL (0.6-4.6); Lymphocytes % 18.9 %; Mean Corpuscular HGB Conc 31.6 g/dL (31.6-35.5); Mean Corpuscular Hemoglobin 29.4 pg (28.0-33.3); Mean Platelet Volume 11.5 fL (9.4-12.4); Monocytes # 0.4 K/mcL (0.0-1.3); Monocytes % 9.1 %; Neutrophils # 3.2 K/mcL (1.6-8.9); Platelet Count 217 K/mcL (140-400); Red Blood Count 4.83 M/mcL (3.82-4.97); Red Cell Distribution Width 13.9 % (11.5-14.5); Segmented Neutrophils % 70.3 %; White Blood Count 4.5 K/mcL (4.3-11.1)
[2020-04-21 10:40] LABS: Calcium 8.5 mg/dL (8.6-10.3); Magnesium 2.5 mg/dL (1.6-2.6); Potassium 3.9 mEq/L (3.5-5.1)
[2020-04-21] MEDS: Melatonin 3 MG TABLET PO SCH (22:29)
[2020-04-21] MEDS: Acetaminophen 325 MG TABLET PO PRN (22:29)
[2020-04-22] MEDS: *HR* Enoxaparin 40 MG/0.4 ML SYRINGE SQ SCH (06:10)
[2020-04-22 07:13] LABS: Basophils % 0.5 %; Eosinophils % 0.5 %; Hematocrit 41.6 % (35.3-44.9); Hemoglobin 13.4 g/dL (11.5-15.4); Immature Granulocytes % 1.4 % (0-4); Lymphocytes # 1.1 K/mcL (0.6-4.6); Lymphocytes % 25.7 %; Mean Corpuscular HGB Conc 32.2 g/dL (31.6-35.5); Mean Corpuscular Hemoglobin 29.5 pg (28.0-33.3); Mean Corpuscular Volume 91.4 fL (83.0-100.0); Mean Platelet Volume 11.4 fL (9.4-12.4); Monocytes # 0.5 K/mcL (0.0-1.3); Monocytes % 10.6 %; Neutrophils # 2.7 K/mcL (1.6-8.9); Platelet Count 220 K/mcL (140-400); Red Blood Count 4.55 M/mcL (3.82-4.97); Red Cell Distribution Width 13.7 % (11.5-14.5); Segmented Neutrophils % 61.3 %; White Blood Count 4.4 K/mcL (4.3-11.1)
[2020-04-22 07:33] LABS: BUN/Creatinine Ratio 47 (6-26); Blood Urea Nitrogen 42 mg/dL (8-23); Calcium 8.5 mg/dL (8.6-10.3); Carbon Dioxide 28 mEq/L (23-29); Chloride 101 mEq/L (98-107); Glucose 110 mg/dL (70-105); Magnesium 2.5 mg/dL (1.6-2.6); Osmolality,Calculated 299 (280-300); Potassium 3.8 mEq/L (3.5-5.1); Sodium 139 mEq/L (136-145); eGFR For African Americans > 60 (> 60); eGFR For Non-African Americans > 60 (> 60)
[2020-04-22 07:43] LABS: Platelet Estimate Normal (Normal); Reactive Lymphocytes Present (Not Present)
[2020-04-22] MEDS: ALPRAZolam 0.5 MG TABLET PO SCH (09:58)
[2020-04-22] MEDS: Divalproex Sodium 125 MG CAPSULE PO SCH (09:58)
[2020-04-22] MEDS: lisinopriL 5 MG TABLET PO SCH (10:03)
[2020-04-22] MEDS: Ascorbic Acid 500 MG TABLET PO SCH (10:03)
[2020-04-22] MEDS: Cholecalciferol (D-3) 1,000 UNIT (25MCG) TABLET PO SCH (10:03)
[2020-04-22] MEDS: Aspirin Enteric Coated 81 MG Tablet PO SCH (10:04)
[2020-04-22] MEDS: carvediloL 25 MG TABLET PO SCH (10:04)
[2020-04-22 11:01] VITALS: BP 142/78
== END 2020-04-22 12:35 | DRG 177 ==
LOC: EMEROOARM 08:33 → 2NENU 08:33 → SUATTDRO 13:00 → 2NENU 04-19 22:11
PROVIDERS: ADMIT Internal Medicine; ATTEND Pharmacist

== ENCOUNTER 2020-04-28 13:30 | Observation (INO) ==
[2020-04-28] MEDS ORDERED: Isovue-370 500 ML BOTTLE IVP ONE (13:45)
[2020-04-28 14:18] LABS: Hematocrit 39.3 % (35.3-44.9); Hemoglobin 13.1 g/dL (11.5-15.4); Mean Corpuscular HGB Conc 33.3 g/dL (31.6-35.5); Mean Corpuscular Hemoglobin 29.8 pg (28.0-33.3); Mean Corpuscular Volume 89.5 fL (83.0-100.0); Mean Platelet Volume 11.6 fL (9.4-12.4); Platelet Count 277 K/mcL (140-400); Red Blood Count 4.39 M/mcL (3.82-4.97); Red Cell Distribution Width 13.3 % (11.5-14.5)
[2020-04-28 14:21] LABS: White Blood Count 8.9 K/mcL (4.3-11.1)
[2020-04-28] MEDS ORDERED: 0.9 % Sodium Chloride 1,000 ML IVC ONE (14:27)
[2020-04-28 14:41] LABS: Calcium 8.8 mg/dL (8.6-10.3); Potassium 3.7 mEq/L (3.5-5.1)
[2020-04-28 15:02] LABS: Troponin I 0.03 ng/mL (< 0.04)
[2020-04-28] MEDS ORDERED: DilTIAZem 50 MG/50 ML IV.SOLN IVC SCH (17:00)
[2020-04-28] MEDS ORDERED: 0.9 % Sodium Chloride 500 ML IVC ONE (17:17)
[2020-04-28] MEDS: DilTIAZem 50 MG/50 ML IV.SOLN IVC SCH ×2 (17:18→23:37)
[2020-04-28 17:49] LABS: Adenovirus Not Detected (Not Detect); Bordetella Pertussis Not Detected (Not Detect); Chlamydophila pneumoniae Not Detected (Not Detect); Coronavirus 229E Not Detected (Not Detect); Coronavirus HKU1 Not Detected (Not Detect); Coronavirus NL63 Not Detected (Not Detect); Coronavirus OC43 Not Detected (Not Detect); Human Metapneumovirus Not Detected (Not Detect); Human Rhinovirus/Enterovirus Not Detected (Not Detect); Influenza A Subtype 2009 H1 Not Detected (Not Detect); Influenza B Not Detected (Not Detect); Mycoplasma pneumoniae Not Detected (Not Detect); Parainfluenza Virus 1 Not Detected (Not Detect); Parainfluenza Virus 2 Not Detected (Not Detect); Parainfluenza Virus 3 Not Detected (Not Detect); Parainfluenza Virus 4 Not Detected (Not Detect); Respiratory Syncytial Virus Not Detected (Not Detect)
[2020-04-28 17:50] LABS: SARS-CoV-2 DETECTED (Not Detect)
[2020-04-28] MEDS ORDERED: Acetaminophen 325 MG TABLET PO PRN (19:47)
[2020-04-28] MEDS ORDERED: Ondansetron ODT 4 MG TAB.RAPDIS SL PRN (19:47)
[2020-04-28] MEDS: carvediloL 25 MG TABLET PO SCH (20:30)
[2020-04-28] MEDS: ALPRAZolam 0.5 MG TABLET PO SCH (20:30)
[2020-04-28] MEDS: Divalproex Sodium 125 MG Sprinkle Capsule (DR) PO SCH (20:30)
[2020-04-28 21:04] LABS: Magnesium 2.3 mg/dL (1.6-2.6); Phosphorous 3.9 mg/dL (2.7-4.5)
[2020-04-29 03:08] LABS: Hematocrit 36.6 % (35.3-44.9); Hemoglobin 11.8 g/dL (11.5-15.4); Mean Corpuscular HGB Conc 32.2 g/dL (31.6-35.5); Mean Corpuscular Hemoglobin 29.5 pg (28.0-33.3); Mean Corpuscular Volume 91.5 fL (83.0-100.0); Mean Platelet Volume 11.3 fL (9.4-12.4); Platelet Count 242 K/mcL (140-400); Red Cell Distribution Width 13.6 % (11.5-14.5)
[2020-04-29 03:21] LABS: BUN/Creatinine Ratio 20 (6-26); Blood Urea Nitrogen 17 mg/dL (8-23); Calcium 7.7 mg/dL (8.6-10.3); Carbon Dioxide 29 mEq/L (23-29); Chloride 106 mEq/L (98-107); Glucose 86 mg/dL (70-105); Osmolality,Calculated 293 (280-300); Potassium 3.2 mEq/L (3.5-5.1); Sodium 141 mEq/L (136-145); eGFR For African Americans > 60 (> 60); eGFR For Non-African Americans > 60 (> 60)
[2020-04-29 03:36] LABS: Thyroid Stimulating Hormone 0.313 mcIU/mL (0.340-5.600)
[2020-04-29] MEDS ORDERED: Aspirin Enteric Coated 81 MG Tablet PO SCH (09:00)
[2020-04-29] MEDS: carvediloL 25 MG TABLET PO SCH ×2 (09:58→20:50)
[2020-04-29] MEDS: ALPRAZolam 0.5 MG TABLET PO SCH ×3 (09:58→20:49)
[2020-04-29] MEDS: Divalproex Sodium 125 MG Sprinkle Capsule (DR) PO SCH ×3 (10:07→20:50)
[2020-04-29 13:07] LABS: Triiodothyronine (T3) Free 2.59 pg/mL (2.50-3.90); Triiodothyronine (T3) Total 0.51 ng/mL (0.87-1.78)
[2020-04-29] MEDS: DilTIAZem CD (24hr) 180 MG CAP.ER.24H PO SCH (15:36)
[2020-04-30 03:48] VITALS: BP 128/77
[2020-04-30] MEDS: DilTIAZem CD (24hr) 180 MG CAP.ER.24H PO SCH (08:25)
[2020-04-30] MEDS: Divalproex Sodium 125 MG Sprinkle Capsule (DR) PO SCH (08:26)
[2020-04-30] MEDS: carvediloL 25 MG TABLET PO SCH (08:26)
[2020-04-30] MEDS: ALPRAZolam 0.5 MG TABLET PO SCH (08:26)
[2020-04-30 11:26] LABS: Hemoglobin 13.2 g/dL (11.5-15.4); Mean Corpuscular HGB Conc 31.4 g/dL (31.6-35.5); Mean Corpuscular Hemoglobin 29.1 pg (28.0-33.3); Mean Corpuscular Volume 92.5 fL (83.0-100.0); Mean Platelet Volume 11.6 fL (9.4-12.4); Platelet Count 255 K/mcL (140-400); Red Blood Count 4.54 M/mcL (3.82-4.97); Red Cell Distribution Width 14.1 % (11.5-14.5); White Blood Count 5.5 K/mcL (4.3-11.1)
[2020-04-30 11:45] LABS: BUN/Creatinine Ratio 13 (6-26); Blood Urea Nitrogen 9 mg/dL (8-23); Calcium 8.4 mg/dL (8.6-10.3); Carbon Dioxide 26 mEq/L (23-29); Chloride 105 mEq/L (98-107); Glucose 104 mg/dL (70-105); Osmolality,Calculated 289 (280-300); Potassium 3.6 mEq/L (3.5-5.1); Sodium 140 mEq/L (136-145); eGFR For African Americans > 60 (> 60); eGFR For Non-African Americans > 60 (> 60)
== END 2020-04-30 12:25 ==
LOC: EMEROOARM 13:30 → 2NENU 13:30 → SUATTDRO 19:49 → 2NENU 19:57
PROVIDERS: ADMIT Internal Medicine; ATTEND Internal Medicine